=== PATIENT | female | born 1950 | race Caucasian/White ===

== ENCOUNTER 2018-11-27 14:24 | Observation (INO) | payer MEDICARE ==
[~2018-11-27] VITALS: Ht 170.2 cm; Wt 89.9 kg
--- OUTSIDE RECORDS SUMMARY | 2018-11-27 14:28 | XMS REPORT | Continuity of Care Document ---
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 creatinine concentrations, including patients and those with serious co-morbid conditions. Patients with extremes in muscle mass or diet. The data above are obtained from the National Kidney Disease Education Program (NKDEP) which additionally recommends that when the eGFR is used in patients with extremes of body mass index for purposes of drug dosing, the eGFR should be multiplied by the estimated BMI. [facility] CHEM PANEL Calcium Lvl 7.9 mg/dL 8.5 - 10.5 04/18/2018 [facility] CHEM PANEL CO2 27 meq/L 24 - 32 04/18/2018 [facility] CHEM PANEL Glucose Lvl 81 mg/dL 70 - 99 04/18/2018 [facility] CHEM PANEL BUN 11 mg/dL 7 - 22 04/18/2018 [facility] CHEM PANEL Sodium Lvl 132 meq/L 135 - 145 04/18/2018 [facility] CHEM PANEL Creatinine Lvl 0.56 mg/dL 0.50 - 1.40 04/18/2018 [facility] CHEM PANEL Chloride Lvl 97 meq/L 95 - 109 04/18/2018 [facility] CHEM PANEL Potassium Lvl 4.4 meq/L 3.5 - 5.1 04/18/2018 [facility] CHEM PANEL AGAP 12.4 meq/L 10.0 - 20.0 04/18/2018 [facility] ENDOCRINOLOGY Cortisol 11.9 ug/dl 04/18/2018 [facility] HEMATOLOGY MPV 7.7 fL 7.4 - 10.4 04/18/2018 [facility] Platelet 255 K/CMM 133 - 450 04/18/2018 [facility] MCHC 33.9 g/dL 32.0 - 36.0 04/18/2018 [facility] RDW 16.5 % 11.5 - 14.5 04/18/2018 [facility] MCH 28.9 pg 27.0 - 31.0 04/18/2018 [facility] Hgb 10.6 g/dL 12.0 - 16.0 04/18/2018 [facility] RBC 3.69 M/CMM 4.20 - 5.40 04/18/2018 [facility] HEMATOLOGY MCV 85.2 fL 80.0 - 98.0 04/18/2018 [facility] Hct 31.4 % 36.0 - 48.0 04/18/2018 [facility] WBC 10.5 K/CMM 3.7 - 10.4 04/18/2018 [facility] IMMUNOLOGY HIV Ag/Ab 4th Gen Negative *NA* (04/16/18 11:26 AM) Negative 04/16/2018 [facility] URINE CHEM U Osmolality 281 mOsm/kg 300 - 800 04/16/2018 [facility] URINE AND STOOL UA Bacteria Occasional /HPF None Seen /HPF 04/15/2018 [facility] URINE AND STOOL UA WBC 1 /HPF 0 - 5 04/15/2018 [facility] URINE AND STOOL UA RBC null 0 - 2 04/15/2018 [facility] URINE AND STOOL UA Color Ltyellow 04/15/2018 [facility] URINE AND STOOL UA Urobilinogen <=1.0 mg/dL 0.1 - 1.0 04/15/2018 [facility] URINE AND STOOL UA Protein Negative mg/dL Negative mg/dL 04/15/2018 [facility] URINE AND STOOL UA pH 6.0 5.0 - 8.0 04/15/2018 [facility] URINE AND STOOL UA Ketones 20 mg/dL Negative mg/dL 04/15/2018 [facility] URINE AND STOOL UA Glucose Negative mg/dL Negative mg/dL 04/15/2018 [facility] URINE AND STOOL UA Blood Small *ABN* (04/15/18 1:43 PM) Negative 04/15/2018 [facility] URINE AND STOOL UA Bili Negative *NA* (04/15/18 1:43 PM) Negative 04/15/2018 [facility] URINE AND STOOL UA Sq Epi Occasional /LPF Few /LPF 04/15/2018 [facility] URINE AND STOOL UA Leuk Est Negative (04/15/18 1:43 PM) Negative 04/15/2018 [facility] URINE AND STOOL UA Nitrite Negative (04/15/18 1:43 PM) Negative 04/15/2018 [facility] URINE AND STOOL UA Turbidity Clear (04/15/18 1:43 PM) Clear 04/15/2018 [facility] URINE AND STOOL UA Spec Grav 1.003 <=1.030 04/15/2018 [facility] URINE CHEM U Chloride null 04/15/2018 [facility] URINE CHEM U Sodium 11 meq/L 04/15/2018 [facility] URINE CHEM U Potassium 6.6 meq/L 04/15/2018 [facility] URINE CHEM U Osmolality 89 mOsm/kg 300 - 800 04/15/2018 [facility] CARDIAC ENZYMES BNP 56 pg/mL <=100 pg/mL 04/15/2018 [facility] CARDIAC ENZYMES Troponin-I null 0.00 - 0.40 04/15/2018 [facility] CARDIAC ENZYMES Total CK 419 unit/L 12 - 191 04/15/2018 [facility] CHEM PANEL Lipase Lvl 60 unit/L 73 - 393 04/15/2018 [facility] CHEM PANEL Phosphorus 2.3 mg/dL 2.5 - 4.5 04/15/2018 [facility] CHEM PANEL Magnesium Lvl 1.5 mg/dL 1.8 - 2.4 04/15/2018 [facility] CHEM PANEL Bili Total 0.3 mg/dL 0.2 - 1.3 04/15/2018 [facility] CHEM PANEL AST 30 unit/L 0 - 37 04/15/2018 [facility] CHEM PANEL A/G Ratio 0.8 0.7 - 1.6 04/15/2018 [facility] CHEM PANEL Alk Phos 90 unit/L 39 - 136 04/15/2018 [facility] CHEM PANEL ALT 24 unit/L 0 - 65 04/15/2018 [facility] CHEM PANEL Globulin 4.0 g/dL 2.7 - 4.2 04/15/2018 [facility] CHEM PANEL Albumin Lvl 3.1 g/dL 3.5 - 5.0 04/15/2018 [facility] CHEM PANEL Total Protein 7.1 g/dL 6.4 - 8.4 04/15/2018 [facility] CHEM PANEL B/C Ratio 18 6 - 25 04/15/2018 [facility] CHEM PANEL Osmolality 230 mOsm/kg 280 - 300 04/15/2018 [facility] HEMATOLOGY Monocytes # 1.3 K/CMM 0.0 - 0.8 04/15/2018 [facility] HEMATOLOGY Eosinophils # 0.1 K/CMM 0.0 - 0.5 04/15/2018 [facility] HEMATOLOGY Lymphocytes # 0.7 K/CMM 1.0 - 5.5 04/15/2018 [facility] HEMATOLOGY Lymphocytes 7.7 % 20.0 - 40.0 04/15/2018 [facility] HEMATOLOGY Segs 76.6 % 45.0 - 75.0 04/15/2018 [facility] HEMATOLOGY Monocytes 14.0 % 2.0 - 12.0 04/15/2018 [facility] HEMATOLOGY Basophils 0.4 % 0.0 - 1.0 04/15/2018 [facility] HEMATOLOGY Neutrophils # 7.2 K/CMM 1.5 - 8.1 04/15/2018 [facility] HEMATOLOGY Eosinophils 1.3 % 0.0 - 4.0 04/15/2018 [facility] HEMATOLOGY PTT 35.5 s 22.9 - 35.8 04/15/2018 [facility] HEMATOLOGY PT 13.4 s 12.0 - 14.7 04/15/2018 [facility] INR 1.02 0.85 - 1.17 04/15/2018 [facility] Hct 33.3 % 36.0 - 48.0 04/15/2018 [facility] MCV 83.0 fL 80.0 - 98.0 04/15/2018 [facility] MCHC 35.3 g/dL 32.0 - 36.0 04/15/2018 [facility] MCH 29.3 pg 27.0 - 31.0 04/15/2018 [facility] RDW 15.6 % 11.5 - 14.5 04/15/2018 [facility] Platelet 219 K/CMM 133 - 450 04/15/2018 [facility] MPV 7.7 fL 7.4 - 10.4 04/15/2018 [facility] Hgb 11.8 g/dL 12.0 - 16.0 04/15/2018 [facility] RBC 4.01 M/CMM 4.20 - 5.40 04/15/2018 [facility] WBC 9.4 K/CMM 3.7 - 10.4 04/15/2018 [facility] Chest 1view DX Chest 1view DX Clinical Indication: - fatigue. Comparison: 03/18/2018. FINDINGS: AP 1 view chest radiograph was performed. LUNGS: Small lung volumes with mild accentuation of the pulmonary vascularity. No interstitial or airspace opacities. No pleural effusions or pneumothorax. HEART AND MEDIASTINUM: The heart and mediastinum are mildly accentuated by the decreased lung volumes. The trachea is midline. OSSEOUS STRUCTURES: Stable in appearance. IMPRESSION: 1. Small lung volumes with mild accentuation of the pulmonary vascularity. No confluent infiltrates in the lungs. SL: [id number] 04/15/2018 - - Read by: Juana Hopson DO Dictated Date/time: 04/15/18 13:03 Electronically Signed by: Juana Hopson DO 04/15/18 13:03 FINAL REPORT [facility] ELECTROLYTES CO2 29 meq/L 24 - 32 03/21/2018 [facility] ELECTROLYTES Calcium Lvl 8.9 mg/dL 8.5 - 10.5 03/21/2018 [facility] ELECTROLYTES eGFR 94 mL/min/1.73m2 03/21/2018 Result Comment: The eGFR is calculated using the CKD-EPI formula. In most young, healthy individuals the eGFR will be >90 mL/min/1.73m2. The eGFR declines with age. An eGFR of 60-89 may be normal in some populations, particularly the elderly, for whom the CKD-EPI formula has not been extensively validated. Use of the eGFR is not recommended in the following populations: Individuals with unstable creatinine concentrations, including patients and those with serious co-morbid conditions. Patients with extremes in muscle mass or diet. The data above are obtained from the National Kidney Disease Education Program (NKDEP) which additionally recommends that when the eGFR is used in patients with extremes of body mass index for purposes of drug dosing, the eGFR should be multiplied by the estimated BMI. [facility] ELECTROLYTES AGAP 10.3 meq/L 10.0 - 20.0 03/21/2018 [facility] ELECTROLYTES BUN 15 mg/dL 7 - 22 03/21/2018 [facility] ELECTROLYTES Creatinine Lvl 0.59 mg/dL 0.50 - 1.40 03/21/2018 [facility] ELECTROLYTES Glucose Lvl 94 mg/dL 70 - 99 03/21/2018 [facility] ELECTROLYTES Potassium Lvl 4.3 meq/L 3.5 - 5.1 03/21/2018 [facility] ELECTROLYTES Sodium Lvl 130 meq/L 135 - 145 03/21/2018 [facility] ELECTROLYTES Chloride Lvl 95 meq/L 95 - 109 03/21/2018 [facility] ELECTROLYTES Sodium Lvl 129 meq/L 135 - 145 03/20/2018 [facility] CHEM PANEL eGFR 83 mL/min/1.73m2 03/19/2018 Result Comment: The eGFR is calculated using the CKD-EPI formula. In most young, healthy individuals the eGFR will be >90 mL/min/1.73m2. The eGFR declines with age. An eGFR of 60-89 may be normal in some populations, particularly the elderly, for whom the CKD-EPI formula has not been extensively validated. Use of the eGFR is not recommended in the following populations: Individuals with unstable creatinine concentrations, including patients and those with serious co-morbid conditions. Patients with extremes in muscle mass or diet. The data above are obtained from the National Kidney Disease Education Program (NKDEP) which additionally recommends that when the eGFR is used in patients with extremes of body mass index for purposes of drug dosing, the eGFR should be multiplied by the estimated BMI. [facility] CHEM PANEL Sodium Lvl 130 meq/L 135 - 145 03/19/2018 [facility] CHEM PANEL Potassium Lvl 4.6 meq/L 3.5 - 5.1 03/19/2018 [facility] CHEM PANEL CO2 30 meq/L 24 - 32 03/19/2018 [facility] CHEM PANEL Chloride Lvl 92 meq/L 95 - 109 03/19/2018 [facility] CHEM PANEL Calcium Lvl 9.7 mg/dL 8.5 - 10.5 03/19/2018 [facility] CHEM PANEL BUN 14 mg/dL 7 - 22 03/19/2018 [facility] CHEM PANEL Glucose Lvl 113 mg/dL 70 - 99 03/19/2018 [facility] CHEM PANEL Creatinine Lvl 0.74 mg/dL 0.50 - 1.40 03/19/2018 [facility] CHEM PANEL AGAP 12.6 meq/L 10.0 - 20.0 03/19/2018 [facility] HEMATOLOGY MPV 8.1 fL 7.4 - 10.4 03/19/2018 [facility] HEMATOLOGY RBC 4.33 M/CMM 4.20 - 5.40 03/19/2018 [facility] HEMATOLOGY WBC 8.9 K/CMM 3.7 - 10.4 03/19/2018 [facility] HEMATOLOGY Hgb 12.2 g/dL 12.0 - 16.0 03/19/2018 [facility] HEMATOLOGY MCV 83.7 fL 80.0 - 98.0 03/19/2018 [facility] HEMATOLOGY Hct 36.2 % 36.0 - 48.0 03/19/2018 [facility] HEMATOLOGY RDW 15.0 % 11.5 - 14.5 03/19/2018 [facility] HEMATOLOGY MCHC 33.8 g/dL 32.0 - 36.0 03/19/2018 [facility] HEMATOLOGY MCH 28.3 pg 27.0 - 31.0 03/19/2018 [facility] HEMATOLOGY Platelet 335 K/CMM 133 - 450 03/19/2018 [facility] HEMATOLOGY Segs 56.7 % 45.0 - 75.0 03/19/2018 [facility] HEMATOLOGY Eosinophils 2.0 % 0.0 - 4.0 03/19/2018 [facility] HEMATOLOGY Monocytes 11.7 % 2.0 - 12.0 03/19/2018 [facility] HEMATOLOGY Lymphocytes 29.1 % 20.0 - 40.0 03/19/2018 [facility] HEMATOLOGY Basophils 0.5 % 0.0 - 1.0 03/19/2018 [facility] HEMATOLOGY Lymphocytes # 2.6 K/CMM 1.0 - 5.5 03/19/2018 [facility] HEMATOLOGY Neutrophils # 5.1 K/CMM 1.5 - 8.1 03/19/2018 [facility] HEMATOLOGY Monocytes # 1.0 K/CMM 0.0 - 0.8 03/19/2018 [facility] HEMATOLOGY Eosinophils # 0.2 K/CMM 0.0 - 0.5 03/19/2018 [facility] TOXICOLOGY Valproic Acid Lvl 29 ug/ml 50 - 100 03/19/2018 [facility] Chest 1view DX Chest 1view DX PROCEDURE: Chest Radiograph. Clinical Indication: Shortness of breath. Comparison: Chest radiograph 03/07/2011. FINDINGS: The chest shows normal lung volumes without interstitial or airspace opacities, pleural effusions or pneumothorax. The cardiac silhouette is upper limits of normal in size. Degenerative change and scoliotic curvature involves the thoracolumbar spine. IMPRESSION: 1. No chest radiographic evidence of acute cardiopulmonary disease. SL:[id number] 03/18/2018 - - Read by: Salomón Saul MD Dictated Date/time: 03/18/18 20:26 Electronically Signed by: Salomón Saul MD 03/18/18 20:27 FINAL REPORT [facility] CHEM PANEL Osmolality 261 mOsm/kg 280 - 300 03/18/2018 [facility] CHEM PANEL Magnesium Lvl 1.7 mg/dL 1.8 - 2.4 03/18/2018 [facility] CHEM PANEL eGFR 78 mL/min/1.73m2 03/18/2018 Result Comment: The eGFR is calculated using the CKD-EPI formula. In most young, healthy individuals the eGFR will be >90 mL/min/1.73m2. The eGFR declines with age. An eGFR of 60-89 may be normal in some populations, particularly the elderly, for whom the CKD-EPI formula has not been extensively validated. Use of the eGFR is not recommended in the following populations: Individuals with unstable creatinine concentrations, including patients and those with serious co-morbid conditions. Patients with extremes in muscle mass or diet. The data above are obtained from the National Kidney Disease Education Program (NKDEP) which additionally recommends that when the eGFR is used in patients with extremes of body mass index for purposes of drug dosing, the eGFR should be multiplied by the estimated BMI. [facility] CHEM PANEL AGAP 13.2 meq/L 10.0 - 20.0 03/18/2018 [facility] CHEM PANEL Calcium Lvl 8.7 mg/dL 8.5 - 10.5 03/18/2018 [facility] CHEM PANEL Glucose Lvl 96 mg/dL 70 - 99 03/18/2018 [facility] CHEM PANEL CO2 28 meq/L 24 - 32 03/18/2018 [facility] CHEM PANEL Chloride Lvl 85 meq/L 95 - 109 03/18/2018 [facility] CHEM PANEL Potassium Lvl 4.2 meq/L 3.5 - 5.1 03/18/2018 [facility] CHEM PANEL Creatinine Lvl 0.78 mg/dL 0.50 - 1.40 03/18/2018 [facility] CHEM PANEL BUN 13 mg/dL 7 - 22 03/18/2018 [facility] HEMATOLOGY Basophils # 0.1 K/CMM 0.0 - 0.2 03/18/2018 [facility] HEMATOLOGY Eosinophils # 0.2 K/CMM 0.0 - 0.5 03/18/2018 [facility] HEMATOLOGY Monocytes # 1.0 K/CMM 0.0 - 0.8 03/18/2018 [facility] HEMATOLOGY Lymphocytes # 1.9 K/CMM 1.0 - 5.5 03/18/2018 [facility] HEMATOLOGY Segs 59.5 % 45.0 - 75.0 03/18/2018 [facility] HEMATOLOGY Monocytes 12.3 % 2.0 - 12.0 03/18/2018 [facility] HEMATOLOGY Lymphocytes 24.5 % 20.0 - 40.0 03/18/2018 [facility] HEMATOLOGY Neutrophils # 4.7 K/CMM 1.5 - 8.1 03/18/2018 [facility] HEMATOLOGY Basophils 1.1 % 0.0 - 1.0 03/18/2018 [facility] HEMATOLOGY Eosinophils 2.6 % 0.0 - 4.0 03/18/2018 [facility] HEMATOLOGY MPV 7.6 fL 7.4 - 10.4 03/18/2018 [facility] HEMATOLOGY Platelet 292 K/CMM 133 - 450 03/18/2018 [facility] HEMATOLOGY RDW 15.1 % 11.5 - 14.5 03/18/2018 [facility] HEMATOLOGY Hct 33.6 % 36.0 - 48.0 03/18/2018 [facility] HEMATOLOGY MCHC 34.5 g/dL 32.0 - 36.0 03/18/2018 [facility] HEMATOLOGY MCH 28.9 pg 27.0 - 31.0 03/18/2018 [facility] HEMATOLOGY MCV 83.6 fL 80.0 - 98.0 03/18/2018 [facility] HEMATOLOGY Hgb 11.6 g/dL 12.0 - 16.0 03/18/2018 [facility] HEMATOLOGY RBC 4.02 M/CMM 4.20 - 5.40 03/18/2018 [facility] HEMATOLOGY WBC 7.9 K/CMM 3.7 - 10.4 03/18/2018 [facility] LIPIDS VLDL 33 03/18/2018 [facility] LIPIDS LDL (Calculated) 101 mg/dL <=99 mg/dL 03/18/2018 [facility] LIPIDS Chol 178 mg/dL <=199 mg/dL 03/18/2018 [facility] LIPIDS CHD Risk 4.05 3.90 - 5.80 03/18/2018 [facility] LIPIDS HDL 44 mg/dL >=61 mg/dL 03/18/2018 [facility] LIPIDS Trig 166 mg/dL <=149 mg/dL 03/18/2018 [facility] URINE AND STOOL UA Urobilinogen <=1.0 mg/dL 0.1 - 1.0 03/18/2018 [facility] URINE AND STOOL UA WBC 1 /HPF 0 - 5 03/18/2018 [facility] URINE AND STOOL UA Sq Epi Occasional /LPF Few /LPF 03/18/2018 [facility] URINE AND STOOL UA Leuk Est Negative (03/17/18 7:58 PM) Negative 03/18/2018 [facility] URINE AND STOOL UA Spec Grav 1.005 <=1.030 03/18/2018 [facility] URINE AND STOOL UA Protein Negative mg/dL Negative mg/dL 03/18/2018 [facility] URINE AND STOOL UA pH 6.0 5.0 - 8.0 03/18/2018 [facility] URINE AND STOOL UA Bili Negative *NA* (03/17/18 7:58 PM) Negative 03/18/2018 [facility] URINE AND STOOL UA Nitrite Negative (03/17/18 7:58 PM) Negative 03/18/2018 [facility] URINE AND STOOL UA Blood Negative (03/17/18 7:58 PM) Negative 03/18/2018 [facility] URINE AND STOOL UA Ketones Negative mg/dL Negative mg/dL 03/18/2018 [facility] URINE AND STOOL UA Glucose Negative mg/dL Negative mg/dL 03/18/2018 [facility] URINE AND STOOL UA Turbidity Clear (03/17/18 7:58 PM) Clear 03/18/2018 [facility] URINE AND STOOL UA Color Light Yellow *NA* (03/17/18 7:58 PM) Yellow 03/18/2018 [facility] URINE CHEM U Osmolality 215 mOsm/kg 300 - 800 03/18/2018 [facility] URINE CHEM U Potassium 15.1 meq/L 03/18/2018 [facility] URINE CHEM U Chloride 46 meq/L 03/18/2018 [facility] URINE CHEM U Sodium 43 meq/L 03/18/2018 [facility] CARDIAC ENZYMES Troponin-I null 0.00 - 0.40 03/17/2018 [facility] CHEM PANEL A/G Ratio 0.8 0.7 - 1.6 03/17/2018 [facility] CHEM PANEL Globulin 4.2 g/dL 2.7 - 4.2 03/17/2018 [facility] CHEM PANEL B/C Ratio 16 6 - 25 03/17/2018 [facility] CHEM PANEL Albumin Lvl 3.3 g/dL 3.5 - 5.0 03/17/2018 [facility] CHEM PANEL Total Protein 7.5 g/dL 6.4 - 8.4 03/17/2018 [facility] CHEM PANEL ALT 17 unit/L 0 - 65 03/17/2018 [facility] CHEM PANEL AST 9 unit/L 0 - 37 03/17/2018 [facility] CHEM PANEL Alk Phos 111 unit/L 39 - 136 03/17/2018 [facility] CHEM PANEL Bili Total 0.3 mg/dL 0.2 - 1.3 03/17/2018 [facility] HEMATOLOGY Basophils 0.7 % 0.0 - 1.0 03/17/2018 [facility] HEMATOLOGY Neutrophils # 5.4 K/CMM 1.5 - 8.1 03/17/2018 [facility] HEMATOLOGY Monocytes # 0.9 K/CMM 0.0 - 0.8 03/17/2018 [facility] HEMATOLOGY Eosinophils 2.3 % 0.0 - 4.0 03/17/2018 [facility] HEMATOLOGY Segs 61.2 % 45.0 - 75.0 03/17/2018 [facility] HEMATOLOGY Lymphocytes 25.8 % 20.0 - 40.0 03/17/2018 [facility] HEMATOLOGY Monocytes 10.0 % 2.0 - 12.0 03/17/2018 [facility] HEMATOLOGY Eosinophils # 0.2 K/CMM 0.0 - 0.5 03/17/2018 [facility] HEMATOLOGY Basophils # 0.1 K/CMM 0.0 - 0.2 03/17/2018 [facility] HEMATOLOGY Lymphocytes # 2.3 K/CMM 1.0 - 5.5 03/17/2018 [facility] HEMATOLOGY Platelet 304 K/CMM 133 - 450 03/17/2018 [facility] HEMATOLOGY RDW 14.8 % 11.5 - 14.5 03/17/2018 [facility] HEMATOLOGY MPV 7.7 fL 7.4 - 10.4 03/17/2018 [facility] HEMATOLOGY MCH 28.5 pg 27.0 - 31.0 03/17/2018 [facility] HEMATOLOGY MCHC 34.5 g/dL 32.0 - 36.0 03/17/2018 [facility] HEMATOLOGY RBC 4.37 M/CMM 4.20 - 5.40 03/17/2018 [facility] HEMATOLOGY WBC 8.8 K/CMM 3.7 - 10.4 03/17/2018 [facility] HEMATOLOGY MCV 82.6 fL 80.0 - 98.0 03/17/2018 [facility] HEMATOLOGY Hct 36.1 % 36.0 - 48.0 03/17/2018 [facility] HEMATOLOGY Hgb 12.5 g/dL 12.0 - 16.0 03/17/2018 [facility] CHEM PANEL Total Protein 7.5 g/dL 6.4 - 8.4 03/16/2014 [facility] CHEM PANEL Albumin Lvl 3.3 g/dL 3.5 - 5.0 03/16/2014 [facility] CHEM PANEL ALT 25 unit/L 0 - 65 03/16/2014 [facility] CHEM PANEL AST 15 unit/L 0 - 37 03/16/2014 [facility] CHEM PANEL Alk Phos 156 unit/L 39 - 136 03/16/2014 [facility] CHEM PANEL Globulin 4.2 g/dL 2.0 - 4.0 03/16/2014 [facility] CHEM PANEL A/G Ratio 0.8 0.7 - 1.6 03/16/2014 [facility] CHEM PANEL Bili Total 0.2 mg/dL 0.2 - 1.3 03/16/2014 [facility] CHEM PANEL eGFR 78 mL/min/1.73m2 03/16/2014 1Result Comment: The eGFR is calculated using the CKD-EPI formula. In most young, healthy individuals the eGFR will be >90 mL/min/1.73m2. The eGFR declines with age. An eGFR of 60-89 may be normal in some populations, particularly the elderly, for whom the CKD-EPI formula has not been extensively validated. Use of the eGFR is not recommended in the following populations: Individuals with unstable creatinine concentrations, including patients and those with serious co-morbid conditions. Patients with extremes in muscle mass or diet. The data above are obtained from the National Kidney Disease Education Program (NKDEP) which additionally recommends that when the eGFR is used in patients with extremes of body mass index for purposes of drug dosing, the eGFR should be multiplied by the estimated BMI. [facility] CHEM PANEL Chloride Lvl 104 meq/L 95 - 109 03/16/2014 [facility] CHEM PANEL Potassium Lvl 4.3 meq/L 3.5 - 5.1 03/16/2014 [facility] CHEM PANEL Sodium Lvl 142 meq/L 135 - 145 03/16/2014 [facility] CHEM PANEL Creatinine Lvl 0.8 mg/dL 0.5 - 1.4 03/16/2014 [facility] CHEM PANEL B/C Ratio 31 6 - 25 03/16/2014 [facility] CHEM PANEL AGAP 13.3 meq/L 10.0 - 20.0 03/16/2014 [facility] CHEM PANEL Calcium Lvl 9.5 mg/dL 8.5 - 10.5 03/16/2014 [facility] CHEM PANEL CO2 29 meq/L 24 - 32 03/16/2014 [facility] CHEM PANEL BUN 25 mg/dL 7 - 22 03/16/2014 [facility] CHEM PANEL Glucose Lvl 118 mg/dL 70 - 99 03/16/2014 2Interpretive Data: Adult reference range values reflect the clinical guidelines of the [place] [employer]. [facility] HEMATOLOGY Hgb 12.2 g/dL 12.0 - 16.0 03/16/2014 [facility] HEMATOLOGY RBC 4.27 M/CMM 4.20 - 5.40 03/16/2014 [facility] HEMATOLOGY WBC 7.4 K/CMM 3.7 - 10.4 03/16/2014 [facility] HEMATOLOGY MCH 28.5 pg 27.0 - 31.0 03/16/2014 [facility] HEMATOLOGY MCHC 33.6 g/dL 32.0 - 36.0 03/16/2014 [facility] HEMATOLOGY Hct 36.3 % 36.0 - 48.0 03/16/2014 [facility] HEMATOLOGY MCV 84.8 fL 80.0 - 98.0 03/16/2014 [facility] HEMATOLOGY RDW 13.9 % 11.5 - 14.5 03/16/2014 [facility] HEMATOLOGY Platelet 292 K/CMM 133 - 450 03/16/2014 [facility] HEMATOLOGY MPV 9.0 fL 7.4 - 10.4 03/16/2014 [facility] HEMATOLOGY Lymphocytes 29.3 % 20.0 - 40.0 03/16/2014 [facility] HEMATOLOGY Segs 52.8 % 45.0 - 75.0 03/16/2014 [facility] HEMATOLOGY Eosinophils 2.6 % 0.0 - 4.0 03/16/2014 [facility] HEMATOLOGY Monocytes 14.9 % 2.0 - 12.0 03/16/2014 [facility] HEMATOLOGY Segs-Bands # 3.9 K/CMM 1.5 - 8.1 03/16/2014 [facility] HEMATOLOGY Basophils 0.4 % 0.0 - 1.0 03/16/2014 [facility] HEMATOLOGY Lymphocytes # 2.2 K/CMM 1.0 - 5.5 03/16/2014 [facility] HEMATOLOGY Eosinophils # 0.2 K/CMM 0.0 - 0.5 03/16/2014 [facility] HEMATOLOGY Monocytes # 1.1 K/CMM 0.0 - 0.8 03/16/2014 [facility] HEMATOLOGY Basophils # 0.0 K/CMM 0.0 - 0.2 03/16/2014 [facility] IMMUNOLOGY HIV. Negative *NA* (03/16/14 5:56 AM) Negative 03/16/2014 [facility] IMMUNOLOGY CDC HIV 4th GEN Negative (03/16/14 5:56 AM) Negative 03/16/2014 [facility] DRUG SCREEN U Phencyc Scr Negative *NA* (03/16/14 4:24 AM) Negative 03/16/2014 [facility] DRUG SCREEN U Benzodia Scr Negative *NA* (03/16/14 4:24 AM) Negative 03/16/2014 [facility] DRUG SCREEN U Opiate Scr Negative *NA* (03/16/14 4:24 AM) Negative 03/16/2014 [facility] DRUG SCREEN U Cocaine Scr Negative *NA* (03/16/14 4:24 AM) Negative 03/16/2014 [facility] DRUG SCREEN U Cannab Scr Negative *NA* (03/16/14 4:24 AM) Negative 03/16/2014 [facility] DRUG SCREEN UDS Note See Note 3 *NA* (03/16/14 4:24 AM) 03/16/2014 3Interpretive Data: Drugs reported as positive have not been confirmed by a second method and should be used for medical purposes only. To order confirmation, contact laboratory. note: Below are cut-off concentrations for all urine drugs of abuse performed in the laboratory. Some drugs listed in the table may not be included in this panel. Description Cut-off concentration Amphetamine 1000 ng/mL Barbiturates 200 ng/mL Benzodiazepines 300 ng/mL Cocaine metabolites 300 ng/mL Opiates 300 ng/mL Phencyclidine 25 ng/mL Propoxyphene 300 ng/mL Marijuana metabolites 50 ng/mL Methadone 300 ng/mL Urine alcohol 20 mg/dL [facility] DRUG SCREEN U Amph Scr Negative *NA* (03/16/14 4:24 AM) Negative 03/16/2014 [facility] DRUG SCREEN U Gracy Scr Negative *NA* (03/16/14 4:24 AM) Negative 03/16/2014 [facility] URINE AND STOOL UA Sq Epi Rare /LPF Few /LPF 03/16/2014 [facility] URINE AND STOOL UA WBC 0-2 /HPF None Seen /HPF 03/16/2014 [facility] URINE AND STOOL Micro? Performed (03/16/14 4:24 AM) 03/16/2014 [facility] URINE AND STOOL UA RBC 0-2 /HPF 0 - 2 03/16/2014 [facility] URINE AND STOOL UA Bacteria Few /HPF None Seen /HPF 03/16/2014 [facility] URINE AND STOOL UA Color Yellow *NA* (03/16/14 4:24 AM) Yellow 03/16/2014 [facility] URINE AND STOOL UA pH 6.0 5.0 - 8.0 03/16/2014 [facility] URINE AND STOOL UA Spec Grav 1.015 <=1.030 03/16/2014 [facility] URINE AND STOOL UA Protein Negative (03/16/14 4:24 AM) Negative 03/16/2014 [facility] URINE AND STOOL UA Turbidity Clear (03/16/14 4:24 AM) Clear 03/16/2014 [facility] URINE AND STOOL UA Glucose Negative (03/16/14 4:24 AM) Negative 03/16/2014 [facility] URINE AND STOOL UA Bili Negative *NA* (03/16/14 4:24 AM) Negative 03/16/2014 [facility] URINE AND STOOL UA Blood Trace *ABN* (03/16/14 4:24 AM) Negative 03/16/2014 [facility] URINE AND STOOL UA Urobilinogen 0.2 EU/dL 0.1 - 1.0 03/16/2014 [facility] URINE AND STOOL UA Nitrite Negative (03/16/14 4:24 AM) Negative 03/16/2014 [facility] URINE AND STOOL UA Ketones Negative *NA* (03/16/14 4:24 AM) Negative 03/16/2014 [facility] URINE AND STOOL UA Leuk Est Trace *ABN* (03/16/14 4:24 AM) Negative 03/16/2014 [facility] URINE CHEM U Preg Negative (03/16/14 4:24 AM) Negative 03/16/2014 [facility] Shoulder series Shoulder series EXAM: RIGHT SHOULDER 3 VIEWS DATE: Mar 16, 2014 04:51:00 AM INDICATION: Pain, Trauma. COMPARISON: None available TECHNIQUE: AP views in internal and external rotation and an axillary view of the right shoulder FINDINGS: No fracture, dislocation or other acute bony abnormality is identified. There mild degenerative changes of the acromioclavicular joint. No soft tissue abnormality is identified. IMPRESSION: 1. No acute bony abnormality identified. 2. Degenerative changes at the acromioclavicular joint. 03/16/2014 - - This report was dictated by a Procurement Inspector/Fellow. I have personally reviewed the images as well as the Resident's interpretation and agree with the findings. Read by: Shanta Bautista MD Resident: Shanta Bautista MD Dictated Date/time: 03/16/14 05:04 Electronically Signed by: Akbar Claudio 03/16/14 06:19 FINAL REPORT [facility] Vital Signs Vital Sign Value Date Comments Source Heart Rate 69 04/20/2018 [facility] Systolic (mm Hg) 119 04/20/2018 [facility] Diastolic (mm Hg) 76 04/20/2018 [facility] Respitory Rate 18 04/20/2018 [facility] Temperature Oral (F) 97.6 F 04/20/2018 [facility] Heart Rate 69 04/20/2018 [facility] Temperature Oral (F) 97.5 F 04/20/2018 [facility] Systolic (mm Hg) 130 04/20/2018 [facility] Diastolic (mm Hg) 83 04/20/2018 [facility] Respitory Rate 18 04/20/2018 [facility] Heart Rate 67 04/20/2018 [facility] Respitory Rate 18 04/20/2018 [facility] Systolic (mm Hg) 136 04/20/2018 [facility] Diastolic (mm Hg) 84 04/20/2018 [facility] Temperature Oral (F) 97.7 F 04/20/2018 [facility] BMI Calculated 32.84 04/15/2018 [facility] Weight 95.1 04/15/2018 [facility] Height 170.18 cm 04/15/2018 [facility] BMI Calculated 32.84 04/15/2018 [facility] Weight 95.1 04/15/2018 [facility] Height 170.18 cm 04/15/2018 [facility] Weight 100 04/15/2018 [facility] BMI Calculated 34.53 04/15/2018 [facility] Height 170.18 cm 04/15/2018 [facility] Respitory Rate 18 03/21/2018 [facility] Temperature Oral (F) 97.9 F 03/21/2018 [facility] Heart Rate 76 03/21/2018 [facility] Systolic (mm Hg) 127 03/21/2018 [facility] Diastolic (mm Hg) 79 03/21/2018 [facility] Systolic (mm Hg) 133 03/20/2018 [facility] Diastolic (mm Hg) 77 03/20/2018 [facility] Heart Rate 74 03/20/2018 [facility] Respitory Rate 17 03/20/2018 [facility] Temperature Oral (F) 98.3 F 03/20/2018 [facility] Temperature Oral (F) 97.8 F 03/20/2018 [facility] Systolic (mm Hg) 117 03/20/2018 [facility] Diastolic (mm Hg) 70 03/20/2018 [facility] Respitory Rate 18 03/20/2018 [facility] Heart Rate 69 03/20/2018 [facility] BMI Calculated 33.27 03/18/2018 [facility] Weight 96.364 03/18/2018 [facility] Height 170.18 cm 03/18/2018 [facility] BMI Calculated 35.97 03/17/2018 [facility] Height 167.64 cm 03/17/2018 [facility] Weight 101.091 03/17/2018 [facility] Respitory Rate 16 03/16/2014 [facility] Diastolic (mm Hg) 92 03/16/2014 [facility] Systolic (mm Hg) 158 03/16/2014 [facility] Temperature Oral (F) 98.1 F 03/16/2014 [facility] Heart Rate 83 03/16/2014 [facility] Heart Rate 81 03/16/2014 [facility] Respitory Rate 16 03/16/2014 [facility] Diastolic (mm Hg) 71 03/16/2014 [facility] Systolic (mm Hg) 126 03/16/2014 [facility] Temperature Oral (F) 98.0 F 03/16/2014 [facility] Temperature Oral (F) 98.7 F 03/16/2014 [facility] Heart Rate 88 03/16/2014 [facility] Systolic (mm Hg) 143 03/16/2014 [facility] Respitory Rate 18 03/16/2014 [facility] Diastolic (mm Hg) 82 03/16/2014 [facility] Height 167.64 cm 03/16/2014 [facility] Weight 64.55 03/16/2014 [facility] BMI Calculated 22.97 03/16/2014 [facility] Encounters Location Location Details Encounter Type Encounter Number Reason For Visit Attending Provider ADM Date DC Date Status Source [facility] [id number] Norma Guillen 03/16/2014 03/17/2014 [facility] Inpatient [id number] William Barbosa 03/18/2018 03/21/2018 [facility] Inpatient [id number] Samson Hardin 04/15/2018 04/20/2018 [facility] Procedures Procedure Code Date Perfomer Comments Source Abdominal hysterectomy [id number] [facility] Excision of ovary<sup>1</sup> [id number] 1bilateral [facility] Tonsillectomy [id number] [facility] Abdominal hysterectomy [id number] [facility] Excision of ovary<sup>1</sup> [id number] bilateral [facility] Tonsillectomy [id number] [facility] Abdominal hysterectomy [id number] [facility] Excision of ovary<sup>1</sup> [id number] bilateral [facility] Tonsillectomy [id number] [facility]
--- OUTSIDE RECORDS SUMMARY | 2018-11-27 14:28 | XMS REPORT ---
Author [facility] Address Unknown Phone Unavailable Care Team Providers Care Dental Service Technician Name Role Phone Unavailable Unavailable Payers Payer Name Policy Type Policy Number Effective Date Expiration Date Problems This patient has no known problems. Allergies, Adverse Reactions, Alerts Allergy Name Allergy Type Status Severity Reaction(s) Onset Date Inactive Date Treating Clinician Comments Sulfa (Sulfonamide Antibiotics) DA Active MO 2018-05-03 00:00:00 penicillin G DA Active SV 2018-05-03 00:00:00 Sulfa (Sulfonamide Antibiotics) DA Active MO 2018-03-08 00:00:00 penicillin G DA Active SV 2018-03-08 00:00:00 Medications This patient has no known medications.
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
--- OUTSIDE RECORDS SUMMARY | 2018-11-27 14:28 | XMS REPORT | Summary of Care ---
Author Author [facility] Organization [facility] Address Unknown Phone Unavailable Encounter ALEISHA Beebe(DONNA) [id number] Date(s): 04/15/18 - 04/20/18 [facility] [address] [place] [address]- [phone] Encounter Diagnosis Hypo-osmolality and hyponatremia (Final) - 04/24/18 Delirium due to known physiological condition (Final) - Acute kidney failure, unspecified (Final) - Morbid (severe) obesity due to excess calories (Final) - Schizoaffective disorder, bipolar type (Final) - Epilepsy, unspecified, not intractable, without status epilepticus (Final) - Other disorders of phosphorus metabolism (Final) - Hypomagnesemia (Final) - Hypokalemia (Final) - Essential (primary) hypertension (Final) - Polydipsia (Final) - Patient's noncompliance with other medical treatment and regimen (Final) - Discharge Disposition: Intermediate Care Attending Physician: Samson Hardin MD Admitting Physician: Samson Hardin MD Vital Signs 1 2 3 Most recent to oldest [Reference Range]: 170.18 cm (04/15/18 5:59 PM) 170.18 cm (04/15/18 3:39 PM) 170.18 cm (04/15/18 11:28 AM) Height 98.727 kg (04/20/18 4:45 AM) 98.409 kg (04/19/18 3:29 AM) 99.727 kg (04/18/18 5:22 AM) Current Weight 97.6 DegF (04/20/18 10:59 AM) 97.5 DegF (04/20/18 7:36 AM) 97.7 DegF (04/20/18 4:30 AM) Temperature Oral [96.4-99.1 DegF] 119/76 mmHg (04/20/18 10:59 AM) 130/83 mmHg (04/20/18 7:36 AM) 136/84 mmHg (04/20/18 4:30 AM) Blood Pressure [90-140/60-90 mmHg] 18 BRMIN (04/20/18 10:59 AM) 18 BRMIN (04/20/18 7:36 AM) 18 BRMIN (04/20/18 4:30 AM) Respiratory Rate [14-20 BRMIN] 69 bpm (04/20/18 10:59 AM) 69 bpm (04/20/18 7:36 AM) 67 bpm (04/20/18 4:30 AM) Peripheral Pulse Rate [60-100 bpm] 95.1 kg (04/15/18 5:59 PM) 95.1 kg (04/15/18 3:39 PM) 100 kg (04/15/18 11:28 AM) Weight 32.84 m2 (04/15/18 5:59 PM) 32.84 m2 (04/15/18 3:39 PM) 34.53 m2 (04/15/18 11:28 AM) Body Mass Index Problem List Condition Effective Dates Status Health Status Informant Simple Active obesity(Confirmed) Allergies, Adverse Reactions, Alerts Substance Reaction Severity Status penicillins Active sulfa drugs Active Medications amLODIPine 2.5 mg, 1 tab, Route: PO, Drug form: TAB, Daily, Dosing Weight 95.1, kg, Start d ate: 04/16/18 9:00:00 CDT, Duration: 30 day, Stop date: 05/15/18 9:00:00 CDT Notes: (Same as: Kian) Start Date: 04/16/18 Stop Date: 04/20/18 Status: Discontinued amLODIPine 2.5 mg oral tablet 2.5 mg=1 tab, PO, Daily, 0 Refill(s) Start Date: 04/15/18 Status: Ordered bacitracin topical 500 units/g ointment 1 appl, TOP, Q12H, 0 Refill(s) Start Date: 04/15/18 Status: Ordered bacitracin topical 500 units/g ointment 1 appl, Route: TOP, Q12H, Drug form: OINT, Start date: 04/15/18 21:00:00 CDT, Du ration: 30 day, Stop date: 05/15/18 9:00:00 CDT Start Date: 04/15/18 Stop Date: 04/16/18 Status: Discontinued benztropine 1 mg, 1 tab, Route: PO, Drug form: TAB, Q12H, Dosing Weight 95.1, kg, Start date : 04/15/18 21:00:00 CDT, Duration: 30 day, Stop date: 05/15/18 9:00:00 CDT Notes: (Same As: Jessica) Start Date: 04/15/18 Stop Date: 04/16/18 Status: Discontinued benztropine 1 mg, 1 tab, Route: PO, Drug form: TAB, Bedtime, Dosing Weight 95.1, kg, Start d ate: 04/17/18 21:00:00 CDT, Duration: 30 day, Stop date: 05/16/18 21:00:00 CDT Notes: (Same As: Jessica) Start Date: 04/17/18 Stop Date: 04/20/18 Status: Discontinued benztropine 1 mg oral tablet 1 mg=1 tab, PO, Q12H, 0 Refill(s) Start Date: 04/15/18 Status: Ordered DDAVP 2 microgram, 0.5 mL, Route: SUB-Q, Drug form: INJ, ONCE, Dosing Weight 95.1, kg, Start date: 04/15/18 21:03:00 CDT, Stop date: 04/15/18 21:03:00 CDT Notes: (Same As: DDAVP) MEDICATION WASTE Product Size: 4 microgram Pro duct Wasted: ___ microgram Start Date: 04/15/18 Stop Date: 04/15/18 Status: Completed Depakote 250 mg oral enteric coated tablet 750 mg, 3 tab, Route: PO, Drug form: ECTAB, QAM, Dosing Weight 95.1, kg, Start d ate: 04/16/18 9:00:00 CDT, Duration: 30 day, Stop date: 05/15/18 9:00:00 CDT Notes: (Same as: Depakote Delayed Release) Do not confuse with the extended-rel ease tablet. Delayed absorption, enteric coated tablet. Do not crush Start Date: 04/16/18 Stop Date: 04/20/18 Status: Discontinued Depakote 250 mg oral enteric coated tablet 1,000 mg, 4 tab, Route: PO, Drug form: ECTAB, Bedtime, Dosing Weight 95.1, kg, S tart date: 04/15/18 21:00:00 CDT, Duration: 30 day, Stop date: 05/14/18 21:00:00 CDT Notes: (Same as: Depakote Delayed Release) Do not confuse with the extended-rel ease tablet. Delayed absorption, enteric coated tablet. Do not crush Start Date: 04/15/18 Stop Date: 04/20/18 Status: Discontinued Depakote 250 mg oral enteric coated tablet 1,000 mg=4 tab, PO, Bedtime, 0 Refill(s) Start Date: 04/15/18 Status: Ordered Depakote 250 mg oral enteric coated tablet 750 mg=3 tab, PO, QAM, 0 Refill(s) Start Date: 04/15/18 Status: Ordered Dextrose 50% Syringe 25 gm, 50 mL, Route: IVP, Drug Form: INJ, Dosing Weight 95.1, kg, PRN, PRN Blood Glucose Results, Start date: 04/16/18 1:45:00 CDT, Duration: 30 day, Stop date: 05/16/18 1:44:00 CDT Start Date: 04/16/18 Stop Date: 04/20/18 Status: Discontinued Dextrose 50% Syringe 12.5 gm, 25 mL, Route: IVP, Drug Form: INJ, Dosing Weight 95.1, kg, PRN, PRN Blo od Glucose Results, Start date: 04/16/18 1:45:00 CDT, Duration: 30 day, Stop pierce e: 05/16/18 1:44:00 CDT Start Date: 04/16/18 Stop Date: 04/20/18 Status: Discontinued Dextrose 50% Syringe 25 mL, Route: IVP, Dosing Weight 95.1, kg, PRN, PRN Blood Glucose Results, Start date: 04/16/18 1:44:00 CDT, Duration: 30 day, Stop date: 05/16/18 1:43:00 CDT Start Date: 04/16/18 Stop Date: 04/16/18 Status: Deleted Dextrose 50% Syringe 50 mL, Route: IVP, Dosing Weight 95.1, kg, PRN, PRN Blood Glucose Results, Start date: 04/16/18 1:44:00 CDT, Duration: 30 day, Stop date: 05/16/18 1:43:00 CDT Start Date: 04/16/18 Stop Date: 04/16/18 Status: Deleted glucagon 1 mg, Route: IM, Drug form: PDR/INJ, PRN, Dosing Weight 95.1, kg, PRN Blood Gluc ose Results, Start date: 04/16/18 1:45:00 CDT, Duration: 30 day, Stop date: 04/21 02/04 1:44:00 CDT Start Date: 04/16/18 Stop Date: 04/20/18 Status: Discontinued glucagon 1 mg, Route: IM, PRN, Dosing Weight 95.1, kg, PRN Blood Glucose Results, Start d ate: 04/16/18 1:44:00 CDT, Duration: 30 day, Stop date: 05/16/18 1:43:00 CDT Start Date: 04/16/18 Stop Date: 04/16/18 Status: Deleted hydrochlorothiazide 25 mg oral tablet 25 mg, 1 tab, Route: PO, Drug form: TAB, Daily, Start date: 04/16/18 9:00:00 CDT , Duration: 30 day, Stop date: 05/15/18 9:00:00 CDT Notes: (Same as: Hydrodiuril) With food. Start Date: 04/16/18 Stop Date: 04/15/18 Status: Canceled hydrochlorothiazide-lisinopril 25 mg-20 mg oral tablet 1 tab, Route: PO, Drug Form: TAB, Dosing Weight 95.1, kg, Daily, Start date: 9:00:00 CDT, Duration: 30 day, Stop date: 05/15/18 9:00:00 CDT Start Date: 04/16/18 Stop Date: 04/15/18 Status: Deleted hydrochlorothiazide-lisinopril 25 mg-20 mg oral tablet 1 tab, PO, Daily, 0 Refill(s) Start Date: 04/15/18 Status: Ordered insulin lispro 3 unit, 0.03 mL, Route: SUB-Q, Drug form: SOLN, TID-Before Meals, Dosing Weight 95.1, kg, PRN Blood Glucose Results, Start date: 04/16/18 1:45:00 CDT, Duration: 30 day, Stop date: 05/16/18 1:44:00 CDT Notes: (Same as: Humalog ) Roll in palms of hands gently; Do not shake `vigorou sly. "Single Patient Use Only " WASTE: F/P - Black; E - [facility] [address] [address] able for 28 days at room temperature.Expires in days from Da te Start Date: 04/16/18 Stop Date: 04/20/18 Status: Discontinued insulin lispro 2 unit, 0.02 mL, Route: SUB-Q, Drug form: SOLN, TID-Before Meals, Dosing Weight 95.1, kg, PRN Blood Glucose Results, Start date: 04/16/18 1:45:00 CDT, Duration: 30 day, Stop date: 05/16/18 1:44:00 CDT Notes: (Same as: Humalog ) Roll in palms of hands gently; Do not shake `vigorou sly. "Single Patient Use Only " WASTE: F/P - Black; E - [facility] [address] able for 28 days at room temperature.Expires in days from Da te Start Date: 04/16/18 Stop Date: 04/20/18 Status: Discontinued insulin lispro 1 unit, 0.01 mL, Route: SUB-Q, Drug form: SOLN, TID-Before Meals, Dosing Weight 95.1, kg, PRN Blood Glucose Results, Start date: 04/16/18 1:45:00 CDT, Duration: 30 day, Stop date: 05/16/18 1:44:00 CDT Notes: (Same as: Humalog ) Roll in palms of hands gently; Do not shake `vigorou sly. "Single Patient Use Only " WASTE: F/P - Black; E - [facility] [address] able for 28 days at room temperature.Expires in days from Da te Start Date: 04/16/18 Stop Date: 04/20/18 Status: Discontinued insulin lispro 5 unit, 0.05 mL, Route: SUB-Q, Drug form: SOLN, TID-Before Meals, Dosing Weight 95.1, kg, PRN Blood Glucose Results, Start date: 04/16/18 1:45:00 CDT, Duration: 30 day, Stop date: 05/16/18 1:44:00 CDT Notes: (Same as: Humalog ) Roll in palms of hands gently; Do not shake `vigorou sly. "Single Patient Use Only " WASTE: F/P - Black; E - [facility] [address] [address] able for 28 days at room temperature.Expires in days from Da te Start Date: 04/16/18 Stop Date: 04/20/18 Status: Discontinued insulin lispro 4 unit, 0.04 mL, Route: SUB-Q, Drug form: SOLN, TID-Before Meals, Dosing Weight 95.1, kg, PRN Blood Glucose Results, Start date: 04/16/18 1:45:00 CDT, Duration: 30 day, Stop date: 05/16/18 1:44:00 CDT Notes: (Same as: Humalog ) Roll in palms of hands gently; Do not shake `vigorou sly. "Single Patient Use Only " WASTE: F/P - Black; E - [facility] [address] able for 28 days at room temperature.Expires in days from Da te Start Date: 04/16/18 Stop Date: 04/20/18 Status: Discontinued insulin lispro 2 unit, 0.02 mL, Route: SUB-Q, Drug form: SOLN, Bedtime, Dosing Weight 95.1, kg, PRN Blood Glucose Results, Start date: 04/16/18 1:44:00 CDT, Duration: 30 day, Stop date: 05/16/18 1:43:00 CDT Notes: (Same as: Humalog ) Roll in palms of hands gently; Do not shake `vigorou sly. "Single Patient Use Only " WASTE: F/P - Black; E - [facility] [address] able for 28 days at room temperature.Expires in days from Da te Start Date: 04/16/18 Stop Date: 04/20/18 Status: Discontinued insulin lispro 4 unit, 0.04 mL, Route: SUB-Q, Drug form: SOLN, Bedtime, Dosing Weight 95.1, kg, PRN Blood Glucose Results, Start date: 04/16/18 1:44:00 CDT, Duration: 30 day, Stop date: 05/16/18 1:43:00 CDT Notes: (Same as: Humalog ) Roll in palms of hands gently; Do not shake `vigorou sly. "Single Patient Use Only " WASTE: F/P - Black; E - [facility] [address] able for 28 days at room temperature.Expires in days from Da te Start Date: 04/16/18 Stop Date: 04/20/18 Status: Discontinued insulin lispro 3 unit, 0.03 mL, Route: SUB-Q, Drug form: SOLN, Bedtime, Dosing Weight 95.1, kg, PRN Blood Glucose Results, Start date: 04/16/18 1:44:00 CDT, Duration: 30 day, Stop date: 05/16/18 1:43:00 CDT Notes: (Same as: Humalog ) Roll in palms of hands gently; Do not shake `vigorou sly. "Single Patient Use Only " WASTE: F/P - Black; E - [facility] [address] able for 28 days at room temperature.Expires in days from Da te Start Date: 04/16/18 Stop Date: 04/20/18 Status: Discontinued insulin lispro 1 unit, 0.01 mL, Route: SUB-Q, Drug form: SOLN, Bedtime, Dosing Weight 95.1, kg, PRN Blood Glucose Results, Start date: 04/16/18 1:44:00 CDT, Duration: 30 day, Stop date: 05/16/18 1:43:00 CDT Notes: (Same as: Humalog ) Roll in palms of hands gently; Do not shake `vigorou slsaman. "Single Patient Use Only " WASTE: F/P - Black; E - [facility] [address] able for 28 days at room temperature.Expires in days from Da te Start Date: 04/16/18 Stop Date: 04/20/18 Status: Discontinued Lasix 20 mg, 2 mL, Route: IVP, Drug form: INJ, ONCE, Dosing Weight 95.1, kg, Start pierce e: 04/16/18 17:59:00 CDT, Stop date: 04/16/18 17:59:00 CDT Notes: (Same as: Lasix) Start Date: 04/16/18 Stop Date: 04/16/18 Status: Completed lisinopril 20 mg, 1 tab, Route: PO, Drug form: TAB, Daily, Start date: 04/16/18 9:00:00 CDT , Duration: 30 day, Stop date: 05/15/18 9:00:00 CDT Notes: (Same as: Prinivil, Zestril) Start Date: 04/16/18 Stop Date: 04/20/18 Status: Discontinued magnesium sulfate 2 gm in Water 50 ml 2 gm, 50 mL, Route: IVPB, Drug form: INJ, ONCE, Dosing Weight 100, kg, Priority: STAT, Start date: 04/15/18 14:47:00 CDT, Stop date: 04/15/18 14:47:00 CDT Notes: WASTE: F/P - Sink; E - [employer] Trash [facility] Start Date: 04/15/18 Stop Date: 04/15/18 Status: Completed MiraLax 17 gm, 1 pkt, Route: PO, Drug form: PWDR, Daily, Dosing Weight 95.1, kg, Start d ate: 04/16/18 9:00:00 CDT, Duration: 30 day, Stop date: 05/15/18 9:00:00 CDT Notes: Dissolve in 8 oz of water or juice.(Same as: Miralax) Start Date: 04/16/18 Stop Date: 04/20/18 Status: Discontinued MiraLax oral powder for reconstitution 17 gm, PO, Daily, 0 Refill(s) Start Date: 04/15/18 Status: Ordered mupirocin topical 1 appl, Route: NASAL, Q12H, Drug form: OINT, Start date: 04/16/18 21:00:00 CDT, Duration: 5 day, Stop date: 04/21/18 9:00:00 CDT, MRSA Decolonization Start Date: 04/16/18 Stop Date: 04/20/18 Status: Discontinued normal saline 0.9% IV 1,000 mL 1,000 mL, Rate: 100 ml/hr, Infuse over: 10 hr, Route: IV, Dosing Weight 95.1 kg, Total Volume: 1,000, Start date: 04/16/18 9:38:00 CDT, Duration: 30 day, Stop d ate: 05/16/18 9:37:00 CDT, 2.15, m2 Start Date: 04/16/18 Stop Date: 04/17/18 Status: Discontinued NS 1,000 mL 1,000 mL, Rate: 75 ml/hr, Infuse over: 13.3 hr, Route: IV, Dosing Weight 95.1 kg , Total Volume: 1,000, Start date: 04/15/18 17:29:00 CDT, Duration: 30 day, Stop date: 05/15/18 17:28:00 CDT, 2.15, m2 Start Date: 04/15/18 Stop Date: 04/15/18 Status: Discontinued NS 1,000 mL 1,000 mL, Rate: 50 ml/hr, Infuse over: 20 hr, Route: IV, Dosing Weight 95.1 kg, Total Volume: 1,000, Start date: 04/16/18 6:06:00 CDT, Duration: 30 day, Stop da te: 05/16/18 6:05:00 CDT, 2.15, m2 Start Date: 04/16/18 Stop Date: 04/16/18 Status: Discontinued nystatin topical 100,000 units/g powder 1 appl, Route: TOP, PRN, Drug form: PWDR, PRN For Fungal Prophylaxis, Start date : 04/16/18 1:45:00 CDT, Duration: 30 day, Stop date: 05/16/18 1:44:00 CDT Notes: (Same as:Mycostatin, Nilstat) For external use only. Start Date: 04/16/18 Stop Date: 04/20/18 Status: Discontinued Phenergan + Sodium Chloride 0.9% IV 50 mL 12.5 mg, 0.5 mL, Route: IVPB, Q4H, Dosing Weight 95.1, kg, PRN Nausea & Vomiting, Start date: 04/15/18 17:27:00 CDT, Duration: 30 day, Stop date: 05/15 17:26:00 CDT Notes: Do not give IV push. (Same as: Phenergan) Start Date: 04/15/18 Stop Date: 04/20/18 Status: Discontinued PHOS-NaK oral powder for reconstitution 1 pkt, Route: PO, Drug Form: PDR/REC, Dosing Weight 95.1, kg, QID, Start date: 0 04/15/18 21:00:00 CDT, Duration: 4 doses or times, Stop date: 04/16/18 17:00:00 C DT Notes: (Same as: Phos-NaK) Each 1.5 gm pkt has 250mg phosphorous. Mix w/2.5oz w ater and stir. Start Date: 04/15/18 Stop Date: 04/16/18 Status: Completed potassium chloride 40 mEq, 30 mL, Route: PO, Drug form: LIQ, ONCE, Dosing Weight 95.1, kg, Start da te: 04/15/18 17:39:00 CDT, Stop date: 04/15/18 17:39:00 CDT Notes: (Same as: Potassium Chloride) Start Date: 04/15/18 Stop Date: 04/15/18 Status: Deleted potassium chloride 20 mEq oral tablet, extended release 40 mEq, 30 mL, Route: PO, Drug form: LIQ, ONCE, Dosing Weight 95.1, kg, Start da te: 04/15/18 17:29:00 CDT, Stop date: 04/15/18 17:29:00 CDT Notes: (Same as: Potassium Chloride) Start Date: 04/15/18 Stop Date: 04/15/18 Status: Completed Risperdal 4 mg, 2 tab, Route: PO, Drug form: TAB, Bedtime, Dosing Weight 95.1, kg, Start d ate: 04/15/18 21:00:00 CDT, Duration: 30 day, Stop date: 05/14/18 21:00:00 CDT Notes: (Same as: Risperdal) Start Date: 04/15/18 Stop Date: 04/16/18 Status: Discontinued Risperdal 2 mg, 1 tab, Route: PO, Drug form: TAB, QAM, Dosing Weight 95.1, kg, Start date: 04/16/18 9:00:00 CDT, Duration: 30 day, Stop date: 05/15/18 9:00:00 CDT Notes: (Same as: Risperdal) Start Date: 04/16/18 Stop Date: 04/20/18 Status: Discontinued Risperdal 2 mg, 1 tab, Route: PO, Drug form: TAB, Bedtime, Dosing Weight 95.1, kg, Start d ate: 04/17/18 21:00:00 CDT, Duration: 30 day, Stop date: 05/16/18 21:00:00 CDT Notes: (Same as: Risperdal) Start Date: 04/17/18 Stop Date: 04/20/18 Status: Discontinued Risperdal 2 mg oral tablet 2 mg=1 tab, PO, QAM, 0 Refill(s) Start Date: 04/15/18 Status: Ordered Risperdal 4 mg oral tablet 4 mg=1 tab, PO, Bedtime, 0 Refill(s) Start Date: 04/15/18 Status: Ordered Saline Flush 0.9% 10 ml, Route: IVP, Drug Form: INJ, Dosing Weight 95.1, kg, PRN, PRN Line Flush, Start date: 04/16/18 1:45:00 CDT, Duration: 30 day, Stop date: 05/16/18 1:44:00 CDT Notes: (Same as: BD Posiflush) Start Date: 04/16/18 Stop Date: 04/20/18 Status: Discontinued Saline Flush 0.9% 10 ml, Route: IVP, Drug Form: INJ, Dosing Weight 95.1, kg, Q12H, Start date: 9:00:00 CDT, Duration: 30 day, Stop date: 05/15/18 21:00:00 CDT Notes: (Same as: BD Posiflush) Start Date: 04/16/18 Stop Date: 04/20/18 Status: Discontinued Sodium Chloride 0.9% IV 1,000 mL 1,000 mL, Rate: 75 ml/hr, Infuse over: 13.3 hr, Route: IV, Dosing Weight 100 kg, Total Volume: 1,000, Priority: STAT, Start date: 04/15/18 13:19:00 CDT, Duratio n: 1 doses or times, Stop date: 04/16/18 2:36:00 CDT, 2.2, m2 Start Date: 04/15/18 Stop Date: 04/15/18 Status: Completed sodium chloride 1 gm oral tablet 2 gm, 2 tab, Route: PO, Drug form: TAB, ONCE, Dosing Weight 95.1, kg, Start date : 04/16/18 17:03:00 CDT, Stop date: 04/16/18 17:03:00 CDT Start Date: 04/16/18 Stop Date: 04/16/18 Status: Completed sodium chloride 1 gm oral tablet 2 gm, 2 tab, Route: PO, Drug form: TAB, ONCE, Dosing Weight 95.1, kg, Start date : 04/17/18 10:48:00 CDT, Stop date: 04/17/18 10:48:00 CDT Start Date: 04/17/18 Stop Date: 04/17/18 Status: Completed Tylenol 650 mg, 2 tab, Route: PO, Drug form: TAB, Q6H, Dosing Weight 95.1, kg, PRN Pain Score 1-5, Start date: 04/17/18 4:01:00 CDT, Duration: 30 day, Stop date: 4:00:00 CDT Notes: Do not exceed 4 gm/day. (Same as: Tylenol) Start Date: 04/17/18 Stop Date: 04/20/18 Status: Discontinued Zofran 4 mg, 2 mL, Route: IVP, Drug form: INJ, Q6H, Dosing Weight 95.1, kg, PRN Nausea, Start date: 04/15/18 17:27:00 CDT, Duration: 30 day, Stop date: 05/15/18 17:26: 00 CDT Notes: (Same as: Zofran) MEDICATION WASTE Product Size: 4 mgProduct Was hortensia: ___ mg Start Date: 04/15/18 Stop Date: 04/20/18 Status: Discontinued Results ELECTROLYTES 1 2 3 Most recent to oldest [Reference Range]: 136 mEq/L (04/20/18 4:11 AM) 133 mEq/L *LOW* (04/19/18 7:19 AM) 132 mEq/L *LOW* (04/18/18 6:33 AM) Sodium Lvl [135-145 mEq/L] 4.4 mEq/L (04/20/18 4:11 AM) 4.4 mEq/L (04/19/18 7:19 AM) 4.4 mEq/L (04/18/18 6:33 AM) Potassium Lvl [3.5-5.1 mEq/L] 98 mEq/L (04/20/18 4:11 AM) 96 mEq/L (04/19/18 7:19 AM) 97 mEq/L (04/18/18 6:33 AM) Chloride Lvl [95-109 mEq/L] 26 mEq/L (04/20/18 4:11 AM) 27 mEq/L (04/19/18 7:19 AM) 27 mEq/L (04/18/18 6:33 AM) CO2 [24-32 mEq/L] 16.4 mEq/L (04/20/18 4:11 AM) 14.4 mEq/L (04/19/18 7:19 AM) 12.4 mEq/L (04/18/18 6:33 AM) AGAP [10.0-20.0 mEq/L] CHEM PANEL 1 2 3 Most recent to oldest [Reference Range]: 0.62 mg/dL (04/20/18 4:11 AM) 0.53 mg/dL (04/19/18 7:19 AM) 0.56 mg/dL (04/18/18 6:33 AM) Creatinine Lvl [0.50-1.40 mg/dL] 92 mL/min/1.73m2 1 *NA* (04/20/18 4:11 AM) 97 mL/min/1.73m2 2 *NA* (04/19/18 7:19 AM) 95 mL/min/1.73m2 3 *NA* (04/18/18 6:33 AM) eGFR 20 mg/dL (04/20/18 4:11 AM) 17 mg/dL (04/19/18 7:19 AM) 11 mg/dL (04/18/18 6:33 AM) BUN [7-22 mg/dL] 18 (04/15/18 11:50 AM) B/C Ratio [6-25] 81 mg/dL (04/20/18 4:11 AM) 80 mg/dL (04/19/18 7:19 AM) 81 mg/dL (04/18/18 6:33 AM) Glucose Lvl [70-99 mg/dL] 7.1 g/dL (04/15/18 11:50 AM) Total Protein [6.4-8.4 g/dL] 3.1 g/dL *LOW* (04/15/18 11:50 AM) Albumin Lvl [3.5-5.0 g/dL] 4.0 g/dL (04/15/18 11:50 AM) Globulin [2.7-4.2 g/dL] 0.8 (04/15/18 11:50 AM) A/G Ratio [0.7-1.6] 8.7 mg/dL (04/20/18 4:11 AM) 8.8 mg/dL (04/19/18 7:19 AM) 7.9 mg/dL *LOW* (04/18/18 6:33 AM) Calcium Lvl [8.5-10.5 mg/dL] 2.3 mg/dL *LOW* (04/15/18 11:50 AM) Phosphorus [2.5-4.5 mg/dL] 1.5 mg/dL *LOW* (04/15/18 11:50 AM) Magnesium Lvl [1.8-2.4 mg/dL] 24 unit/L (04/15/18 11:50 AM) ALT [0-65 unit/L] 30 unit/L (04/15/18 11:50 AM) AST [0-37 unit/L] 90 unit/L (04/15/18 11:50 AM) Alk Phos [39-136 unit/L] 0.3 mg/dL (04/15/18 11:50 AM) Bili Total [0.2-1.3 mg/dL] 60 unit/L *LOW* (04/15/18 11:50 AM) Lipase Lvl [73-393 unit/L] 230 mOsm/kg *LOW* (04/15/18 11:50 AM) Osmolality [280-300 mOsm/kg] 1Result Comment: The eGFR is calculated using [...] be mul tiplied by the estimated BMI. 2Result Comment: The eGFR is calculated using the [...] be mul tiplied by the estimated BMI. 3Result Comment: The eGFR is calculated using the [...] be mul tiplied by the estimated BMI. CARDIAC ENZYMES 1 2 3 Most recent to oldest [Reference Range]: 419 unit/L *HI* (04/15/18 11:50 AM) Total CK [12-191 unit/L] <0.02 ng/mL (04/15/18 11:50 AM) Troponin-I [0.00-0.40 ng/mL] 56 pg/mL (04/15/18 11:50 AM) BNP [<=100 pg/mL] ENDOCRINOLOGY 1 2 3 Most recent to oldest [Reference Range]: 6.8 ug/dl *NA* (04/20/18 4:11 AM) 7.8 ug/dl *NA* (04/19/18 7:19 AM) 11.9 ug/dl *NA* (04/18/18 6:33 AM) Cortisol URINE CHEM 1 2 3 Most recent to oldest [Reference Range]: 11 mEq/L *NA* (04/15/18 1:43 PM) U Sodium 6.6 mEq/L *NA* (04/15/18 1:43 PM) U Potassium <10 mEq/L *NA* (04/15/18 1:43 PM) U Chloride 281 mOsm/kg *LOW* (04/16/18 1:57 AM) 89 mOsm/kg *LOW* (04/15/18 1:43 PM) U Osmolality [300-800 mOsm/kg] URINE AND STOOL 1 2 3 Most recent to oldest [Reference Range]: Clear (04/15/18 1:43 PM) UA Turbidity [Clear] Ltyellow *NA* (04/15/18 1:43 PM) UA Color 6.0 (04/15/18 1:43 PM) UA pH [5.0-8.0] 1.003 (04/15/18 1:43 PM) UA Spec Grav [<=1.030] Negative mg/dL *NA* (04/15/18 1:43 PM) UA Glucose [Negative mg/dL] Small *ABN* (04/15/18 1:43 PM) UA Blood [Negative] 20 mg/dL *ABN* (04/15/18 1:43 PM) UA Ketones [Negative mg/dL] Negative mg/dL (04/15/18 1:43 PM) UA Protein [Negative mg/dL] <=1.0 mg/dL *NA* (04/15/18 1:43 PM) UA Urobilinogen [0.1-1.0 mg/dL] Negative *NA* (04/15/18 1:43 PM) UA Bili [Negative] Negative (04/15/18 1:43 PM) UA Leuk Est [Negative] Negative (04/15/18 1:43 PM) UA Nitrite [Negative] 1 /HPF (04/15/18 1:43 PM) UA WBC [0-5 /HPF] <1 /HPF (04/15/18 1:43 PM) UA RBC [0-2 /HPF] Occasional /HPF *NA* (04/15/18 1:43 PM) UA Bacteria [None Seen /HPF] Occasional /LPF *NA* (04/15/18 1:43 PM) UA Sq Epi [Few /LPF] IMMUNOLOGY 1 2 3 Most recent to oldest [Reference Range]: Negative *NA* (04/16/18 11:26 AM) HIV Ag/Ab 4th Gen [Negative] HEMATOLOGY 1 2 3 Most recent to oldest [Reference Range]: 9.8 K/CMM (04/20/18 4:11 AM) 10.5 K/CMM *HI* (04/18/18 6:33 AM) 9.4 K/CMM (04/15/18 11:50 AM) WBC [3.7-10.4 K/CMM] 3.89 M/CMM *LOW* (04/20/18 4:11 AM) 3.69 M/CMM *LOW* (04/18/18 6:33 AM) 4.01 M/CMM *LOW* (04/15/18 11:50 AM) RBC [4.20-5.40 M/CMM] 11.3 g/dL *LOW* (04/20/18 4:11 AM) 10.6 g/dL *LOW* (04/18/18 6:33 AM) 11.8 g/dL *LOW* (04/15/18 11:50 AM) Hgb [12.0-16.0 g/dL] 33.7 % *LOW* (04/20/18 4:11 AM) 31.4 % *LOW* (04/18/18 6:33 AM) 33.3 % *LOW* (04/15/18 11:50 AM) Hct [36.0-48.0 %] 86.7 fL (04/20/18 4:11 AM) 85.2 fL (04/18/18 6:33 AM) 83.0 fL (04/15/18 11:50 AM) MCV [80.0-98.0 fL] 29.1 pg (04/20/18 4:11 AM) 28.9 pg (04/18/18 6:33 AM) 29.3 pg (04/15/18 11:50 AM) MCH [27.0-31.0 pg] 33.5 g/dL (04/20/18 4:11 AM) 33.9 g/dL (04/18/18 6:33 AM) 35.3 g/dL (04/15/18 11:50 AM) MCHC [32.0-36.0 g/dL] 16.5 % *HI* (04/20/18 4:11 AM) 16.5 % *HI* (04/18/18 6:33 AM) 15.6 % *HI* (04/15/18 11:50 AM) RDW [11.5-14.5 %] 8.0 fL (04/20/18 4:11 AM) 7.7 fL (04/18/18 6:33 AM) 7.7 fL (04/15/18 11:50 AM) MPV [7.4-10.4 fL] 239 K/CMM (04/20/18 4:11 AM) 255 K/CMM (04/18/18 6:33 AM) 219 K/CMM (04/15/18 11:50 AM) Platelet [133-450 K/CMM] 76.6 % *HI* (04/15/18 11:50 AM) Segs [45.0-75.0 %] 7.7 % *LOW* (04/15/18 11:50 AM) Lymphocytes [20.0-40.0 %] 14.0 % *HI* (04/15/18 11:50 AM) Monocytes [2.0-12.0 %] 1.3 % (04/15/18 11:50 AM) Eosinophils [0.0-4.0 %] 0.4 % (04/15/18 11:50 AM) Basophils [0.0-1.0 %] 7.2 K/CMM (04/15/18 11:50 AM) Neutrophils # [1.5-8.1 K/CMM] 0.7 K/CMM *LOW* (04/15/18 11:50 AM) Lymphocytes # [1.0-5.5 K/CMM] 1.3 K/CMM *HI* (04/15/18 11:50 AM) Monocytes # [0.0-0.8 K/CMM] 0.1 K/CMM (04/15/18 11:50 AM) Eosinophils # [0.0-0.5 K/CMM] 13.4 seconds (04/15/18 11:50 AM) PT [12.0-14.7 seconds] 1.02 (04/15/18 11:50 AM) INR [0.85-1.17] 35.5 seconds (04/15/18 11:50 AM) PTT [22.9-35.8 seconds] Immunizations Not Given Vaccine Date Status Refusal Reason pneumococcal 13-valent vaccine 04/20/18 Not Given Patient Refuses influenza virus vaccine, inactivated 04/20/18 Not Given Patient Refuses Procedures Procedure Date Related Diagnosis Body Site Status Abdominal hysterectomy Completed Excision of ovary1 Completed Tonsillectomy Completed 1bilateral Social History Social History Type Response Substance Abuse Use: None. Alcohol Never Smoking Status Never smoker; Exposure to Tobacco Smoke None; Cigarette Smoking Last 365 Days No; Reg Smoking Cessation Counseling Yes entered on: 04/15/18 Assessment and Plan Extracted from: Title: Clinical Document Author: Shay Alvarez MD Date: 04/20/18 Psychiatry Progress Note. SHAY ALVAREZ M.D. Board Certified in Adult and Geriatric Psychiatry. Patient seen, Events noted. SUBJECTIVE : Feels ok OBJECTIVE : She is alert, awake, calm, mood fair, no agitation. Allergies: sulfa drugs, penicillins Labs (Last four charted values) WBC 9.8(APR 20)H 10.5(APR 18)9.4(APR 15) Hgb L 11.3(APR 20)L 10.6(APR 18)L 11.8(APR 15) Hct L 33.7(APR 20)L 31.4(APR 18)L 33.3(APR 15) Plt 239(APR 20)255(APR 18)219(APR 15) Na 136(APR 20)L 133(APR 19)L 132(APR 18)L 131(APR 17) K 4.4(APR 20)4.4(APR 19)4.4(APR 18)4.3(APR 17) CO2 26(APR 20)27(APR 19)27(APR 18)26(APR 17) Cl 98(APR 20)96(APR 19)97(APR 18)L 94(APR 17) Cr 0.62(APR 20)0.53(APR 19)0.56(APR 18)0.70(APR 17) BUN 20(APR 20)17(APR 19)11(APR 18)9(APR 17) Glucose Random 81(APR 20)80(APR 19)81(APR 18)98(APR 17) Mg L 1.5(APR 15) Phos L 2.3(APR 15) Ca 8.7(APR 20)8.8(APR 19)L 7.9(APR 18)L 8.2(APR 17) PT 13.4(APR 15) INR 1.02(APR 15) PTT 35.5(APR 15) Troponin <0.02(APR 15) Total CK H 419(APR 15) MENTAL STATUS EXAM: She is alert, awake, calm, no agitation ASSESSMENT: 1. Delirium due to multiple etiologies likely causes, metabolic causes hyponatremia, medication related. 2. Schizoaffective disorder- bipolar type. PLAN: Continue current treatment. OK to d/c from psychaitric stand point. Extracted from: Title: Discharge Summary * Author: Samson Hardin MD Date: 04/20/18 Discharge Information Disposition to home Condition stable Medications: See med reconciliation form Diet: Heart healthy Discharge Plan In the event of any worsening symptom patient was to come back to the ED for further evaluation Discharge summary to greater than 35 minutes Extracted from: Title: Clinical Document Author: Khari Buitrago Date: 04/15/18 [facility] CONSULT NOTE Reason for consult: severe hyponatremia History of presenting illness: Patient is a 68-year-old female who has known history of HIV currently not on any treatment states she has history of polydipsia noted on prior discharge summary, has history of bipolar disorder, she also has been on hydrochlorothiazide in the past comes in with 2-day history of nausea vomiting, she apparently has been off hydrochlorothiazide, since her last discharge. 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 FAMILY HISTORY mother discussed the Father: Heart disease Mother: Type 2 diabetes mellitus SURGICAL HISTORY Tonsillectomy Abdominal hysterectomy Excision of ovary SOCIAL HISTORY Alcohol Details: Never Tobacco Details: Use: Never smoker. Tobacco smoke exposure: None. Did the Patient Smoke Cigarettes Anytime During the Last 365 Days? No. Cessation Counseling Provided? Yes. Substance Abuse Details: Use: None. Lines, Tubes, and Drains: 04/15/2018 12:13 Peripheral Lines: Antecubital Right 20 gauge Over the needle catheter ALLERGIES Allergies (2) ActiveReaction penicillinsNone Documented sulfa drugsNone Documented Review of Systems CONSTITUTIONAL: no fever. chills. dizziness. weakness. EYES: No pain, erythema, or discharge, blurring of vision. EAR, NOSE AND THROAT: No sore throat, URI symptoms, epistaxis,tinnitus. CARDIOVASCULAR: No chest pain. No palpitations. + lower extremity edema. RESPIRATORY: No shortness of breath, cough, pain with respiration, or pleuritic chest pain. No hemoptysis. No dyspnea. No paroxysmal nocturnal dyspnea. GASTROINTESTINAL: Normal appetite. No dysphagia, nausea, vomiting, diarrhea. No pain. No bleeding. GENITOURINARY: No frequency, urgency, nocturia, hematuria or dysuria. MUSCULOSKELETAL: No arthralgias or myalgias. INTEGUMENTARY: No swelling, bruising, contusions,abrasions, lymphangitis. NEUROLOGIC: No headache, neck pain, numbness or tingling of the extremities. or weakness. METABOLIC:No history of thyroid, diabetes or adrenal problems. HEMATOLOGICAL: No bleeding, petechiae,bruising. ALLERGY: No asthma, urticaria. PSYCHIATRIC: No confusion or depression GENERAL EXAMINATION Vitals and Temp: VitalsTmp(F)[id number] 04/15 14:[id number]--- 04/15 11:53----[id number]--- 04/15 11:[id number] 4.0L/m 24 Hr Tmax: 97.9F (36.61c) at 04/15 14:37Vital Signs are the last 5 in the past 48 hours. General: Lying in bed awake interactive not in any distress eyes: Sclera anicteric, conjunctiva pink ENT: Tongue moist neck: Supple, no use of accessory muscles, no JVD Heart: Regular rate and rhythm, S1 and S2 heard, no murmurs Lungs: Clear to auscultation bilaterally, no evidence of accessory muscle use Abdomen: Soft, obese, Non tender. BS + : deferred Extremities: no evidence of edema in legs, hands and feet are cool Skin: No rashes,or bruising Neurologic: AO X 3, no focal deficit. Psych : normal mood and affect MEDICATION No qualifying data available Home Medications (9) Active amLODIPine 2.5 mg oral tablet 2.5 mg=1 tab, PO, Daily bacitracin topical 500 units/g ointment 1 appl, TOP, Q12H benztropine 1 mg oral tablet 1 mg=1 tab, PO, Q12H Depakote 250 mg oral enteric coated tablet 750 mg=3 tab, PO, QAM Depakote 250 mg oral enteric coated tablet 1,000 mg=4 tab, PO, Bedtime hydrochlorothiazide-lisinopril 25 mg-20 mg oral tablet 1 tab, PO, Daily MiraLax oral powder for reconstitution 17 gm, PO, Daily Risperdal 2 mg oral tablet 2 mg=1 tab, PO, QAM Risperdal 4 mg oral tablet 4 mg=1 tab, PO, Bedtime LABS Labs (Last four charted values) WBC 9.4(APR 15) Hgb L 11.8(APR 15) Hct L 33.3(APR 15) Plt 219(APR 15) Na C 111(APR 15) K 3.5(APR 15) CO2 30(APR 15) Cl L 70(APR 15) Cr L 0.44(APR 15) BUN 8(APR 15) Glucose Random 98(APR 15) Mg L 1.5(APR 15) Phos L 2.3(APR 15) Ca L 8.3(APR 15) PT 13.4(APR 15) INR 1.02(APR 15) PTT 35.5(APR 15) Troponin <0.02(APR 15) Total CK H 419(APR 15) Radiology IMPRESSION: 1. Small lung volumes with mild accentuation of the pulmonary vascularity. No confluent infiltrates in the lungs. IMPRESSION: severe Hyponatremia Psychogenic polydipsea Bipolar disorder HIV Obesity Questionable noncompliance PLAN : Patient noted clinical hyponatremia with sodium of 111, this is significantly lower compared to her last sodium level of 130 in the system,She was started on 75 cc of fluid in the ER, I had ordered a stat BMP repeat which came back as 180 which is a quite rapid increase hence I went ahead and stop the fluids. Nephrology has also been consulted and plan to do BMP every 4 hours. We will likely stop all fluid and allow the sodium to rise as we increase the potassium She is stable there is no signs of infection hold off on antibiotics. ID has been consulted for HIV evaluation. Thank you for involving us in the care of the patient I spent 35 min of Critical care time , in reviewing, laboratory and radiographic data,in direct management of patient at bedside as well as coordination .Time spent does not include time spent by any other provider or time spent in doing procedure. Patient required critical care due to the acute impairment of vital organ systems and a high probability of imminent and life threatening deterioration. None Specified=FULL CODE Khari Buitrago MD MPH Pulmonary and Critical Care Medicine
--- OUTSIDE RECORDS SUMMARY | 2018-11-27 14:28 | XMS REPORT | Summary of Care ---
Author Author [facility] Organization [facility] Address Unknown Phone Unavailable Encounter ALEISHA Beebe(DONNA) [id number] Date(s): 03/18/18 - 03/21/18 [facility] [address] [place] [address]- [phone] Encounter Diagnosis Hypo-osmolality and hyponatremia (Final) - 04/10/18 Bipolar disorder, unspecified (Final) - Essential (primary) hypertension (Final) - Epilepsy, unspecified, not intractable, without status epilepticus (Final) - Unspecified psychosis not due to a substance or known physiological condition (Final) - Other halfway (current) drug therapy (Final) - Discharge Disposition: DC/TF To Psych Hosp Attending Physician: William Barbosa MD Admitting Physician: William Barbosa MD Vital Signs 1 2 3 Most recent to oldest [Reference Range]: 170.18 cm (03/17/18 10:35 PM) 167.64 cm (03/17/18 5:41 PM) Height 97.727 kg (03/21/18 9:00 AM) 98.21 kg (03/18/18 8:30 AM) Current Weight 97.9 DegF (03/21/18 7:28 AM) 98.3 DegF (03/20/18 6:30 PM) 97.8 DegF (03/20/18 2:00 PM) Temperature Oral [96.4-99.1 DegF] 127/79 mmHg (03/21/18 7:28 AM) 133/77 mmHg (03/20/18 6:30 PM) 117/70 mmHg (03/20/18 2:00 PM) Blood Pressure [90-140/60-90 mmHg] 18 BRMIN (03/21/18 7:28 AM) 17 BRMIN (03/20/18 6:30 PM) 18 BRMIN (03/20/18 2:00 PM) Respiratory Rate [14-20 BRMIN] 76 bpm (03/21/18 7:28 AM) 74 bpm (03/20/18 6:30 PM) 69 bpm (03/20/18 2:00 PM) Peripheral Pulse Rate [60-100 bpm] 96.364 kg (03/17/18 10:35 PM) 101.091 kg (03/17/18 5:41 PM) Weight 33.27 m2 (03/17/18 10:35 PM) 35.97 m2 (03/17/18 5:41 PM) Body Mass Index Problem List Condition Effective Dates Status Health Status Informant Simple Active obesity(Confirmed) Allergies, Adverse Reactions, Alerts Substance Reaction Severity Status penicillins Active sulfa drugs Active Medications acetaminophen 650 mg, 2 tab, Route: PO, Drug form: TAB, Q6H, Dosing Weight 96.364, kg, PRN Hea dache 1-5, Start date: 03/18/18 1:06:00 CDT, Duration: 30 day, Stop date: 1:05:00 CDT Start Date: 03/18/18 Stop Date: 03/21/18 Status: Discontinued amLODIPine 2.5 mg, 1 tab, Route: PO, Drug form: TAB, Daily, Dosing Weight 96.364, kg, Start date: 03/20/18 9:00:00 CDT, Duration: 30 day, Stop date: 04/18/18 9:00:00 CDT Notes: (Same as: Norvasc) Start Date: 03/20/18 Stop Date: 03/21/18 Status: Discontinued Ativan 2 mg, 1 mL, Route: IVP, Drug form: INJ, ONCE, Dosing Weight 96.364, kg, PRN Seiz ure, Start date: 03/19/18 1:15:00 CDT Notes: (Same as: Ativan) Start Date: 03/19/18 Stop Date: 03/21/18 Status: Discontinued BD Normal Saline Flush 25 mL, Route: IV, Drug Form: INJ, PRN, PRN Line Flush, Start date: 03/17/18 22:1 4:00 CDT, Duration: 30 day, Stop date: 04/16/18 22:13:00 CDT Notes: (Same as: BD Posiflush) Start Date: 03/17/18 Stop Date: 03/21/18 Status: Discontinued BD Normal Saline Flush 10 mL, Route: IV, Drug Form: INJ, PRN, PRN Line Flush, Start date: 03/17/18 22:1 4:00 CDT, Duration: 30 day, Stop date: 04/16/18 22:13:00 CDT Notes: (Same as: BD Posiflush) Start Date: 03/17/18 Stop Date: 03/21/18 Status: Discontinued benztropine 1 mg, 1 tab, Route: PO, Drug form: TAB, BID, Dosing Weight 96.364, kg, Start pierce e: 03/19/18 9:00:00 CDT, Duration: 30 day, Stop date: 04/17/18 17:00:00 CDT Notes: (Same As: Cogentin) Start Date: 03/19/18 Stop Date: 03/21/18 Status: Discontinued demeclocycline 300 mg, 2 tab, Route: PO, Drug form: TAB, BID, Dosing Weight 96.364, kg, Start d ate: 03/18/18 9:00:00 CDT, Duration: 30 day, Stop date: 04/16/18 17:00:00 CDT Notes: (Same As: Declomycin) Start Date: 03/18/18 Stop Date: 03/19/18 Status: Discontinued Depakote 500 mg, PO, BID, 0 Refill(s) Start Date: 03/17/18 Stop Date: 04/15/18 Status: Deleted Depakote 500 mg oral enteric coated tablet 750 mg, 3 tab, Route: PO, Drug form: ECTAB, BID, Dosing Weight 96.364, kg, Start date: 03/19/18 9:00:00 CDT, Duration: 30 day, Stop date: 04/17/18 17:00:00 CDT Notes: (Same as: Depakote Delayed Release) Do not confuse with the extended-rel ease tablet. Delayed absorption, enteric coated tablet. Do not crush Start Date: 03/19/18 Stop Date: 03/21/18 Status: Discontinued docusate sodium 100 mg, 1 cap, Route: PO, Drug form: CAP, BID, Dosing Weight 96.364, kg, Start d ate: 03/19/18 9:00:00 CDT, Duration: 30 day, Stop date: 04/17/18 17:00:00 CDT Notes: (Same as: Colace) (Do Not Crush) Start Date: 03/19/18 Stop Date: 03/21/18 Status: Discontinued docusate sodium 100 mg, PO, BID, 0 Refill(s) Start Date: 03/17/18 Stop Date: 04/15/18 Status: Deleted hydrochlorothiazide 25 mg, PO, Daily, administer with lisinopril. hold if BP<120/70, 0 Refill(s) Start Date: 03/17/18 Stop Date: 04/15/18 Status: Deleted lisinopril 20 mg, 1 tab, Route: PO, Drug form: TAB, Daily, Dosing Weight 96.364, kg, Start date: 03/19/18 9:00:00 CDT, Duration: 30 day, Stop date: 04/17/18 9:00:00 CDT Notes: (Same as: Prinivil, Zestril) Start Date: 03/19/18 Stop Date: 03/20/18 Status: Discontinued lisinopril 20 mg, PO, Daily, 0 Refill(s) Start Date: 03/17/18 Stop Date: 04/15/18 Status: Deleted magnesium sulfate 2gm / NS 50ml (premixed) 2 gm, 50 mL, Route: IVPB, Drug form: INJ, ONCE, Dosing Weight 96.364, kg, Start date: 03/18/18 7:35:00 CDT, Stop date: 03/18/18 7:35:00 CDT Notes: WASTE: F/P - Sink; E - Municipal Trash Bin Start Date: 03/18/18 Stop Date: 03/18/18 Status: Completed MiraLax 17 gm, PO, Daily, 0 Refill(s) Start Date: 03/17/18 Stop Date: 04/15/18 Status: Deleted MiraLax 17 gm, 1 pkt, Route: PO, Drug form: PWDR, Daily, Dosing Weight 96.364, kg, Start date: 03/19/18 9:00:00 CDT, Duration: 30 day, Stop date: 04/17/18 9:00:00 CDT Notes: Dissolve in 8 oz of water or juice.(Same as: Miralax) Start Date: 03/19/18 Stop Date: 03/21/18 Status: Discontinued NS 1,000 mL 1,000 mL, Rate: 75 ml/hr, Infuse over: 13.3 hr, Route: IV, Dosing Weight 101.091 kg, Total Volume: 1,000, Start date: 03/17/18 20:40:00 CDT, Duration: 30 day, S top date: 04/16/18 20:39:00 CDT, 2.2, m2 Start Date: 03/17/18 Stop Date: 03/17/18 Status: Discontinued Risperdal 2 mg, 2 tab, Route: PO, Drug form: TAB, BID, Dosing Weight 96.364, kg, Start pierce e: 03/19/18 9:00:00 CDT, Duration: 30 day, Stop date: 04/17/18 17:00:00 CDT Notes: (Same as: Risperdal) Start Date: 03/19/18 Stop Date: 03/21/18 Status: Discontinued Risperdal 2 mg, PO, BID, 0 Refill(s) Start Date: 03/17/18 Stop Date: 04/15/18 Status: Deleted Sodium Chloride 0.9% IV 1,000 mL 1,000 mL, Rate: 75 ml/hr, Infuse over: 13.3 hr, Route: IV, Dosing Weight 101.091 kg, Total Volume: 1,000, Start date: 03/17/18 22:01:00 CDT, Duration: 2 doses or times, Stop date: 03/19/18 0:36:00 CDT, 2.2, m2 Start Date: 03/17/18 Stop Date: 03/17/18 Status: Discontinued sodium chloride 1 gm oral tablet 2 gm, 2 tab, Route: PO, Drug form: TAB, BID, Dosing Weight 101.091, kg, Priority : NOW, Start date: 03/17/18 22:11:00 CDT, Duration: 30 day, Stop date: 04/16/18 17:00:00 CDT Start Date: 03/17/18 Stop Date: 03/19/18 Status: Discontinued sodium chloride 1 gm oral tablet 1 gm, 1 tab, Route: PO, Drug form: TAB, BID, Dosing Weight 101.091, kg, Start da te: 03/19/18 9:00:00 CDT, Duration: 30 day, Stop date: 04/17/18 17:00:00 CDT Start Date: 03/19/18 Stop Date: 03/21/18 Status: Discontinued Trileptal 150 mg, 1 tab, Route: PO, Drug form: TAB, Bedtime, Dosing Weight 96.364, kg, Sta rt date: 03/18/18 21:29:00 CDT, Duration: 30 day, Stop date: 04/17/18 21:00:00 C DT Notes: Do not crush or chew.(Same as: Trileptal) Start Date: 03/18/18 Stop Date: 03/19/18 Status: Discontinued Trileptal 150 mg oral tablet 150 mg=1 tab, PO, Bedtime, 0 Refill(s) Start Date: 03/17/18 Stop Date: 04/15/18 Status: Deleted Results ELECTROLYTES 1 2 3 Most recent to oldest [Reference Range]: 130 mEq/L *LOW* (03/21/18 5:28 AM) 129 mEq/L *LOW* (03/20/18 6:04 AM) 130 mEq/L *LOW* (03/19/18 1:18 AM) Sodium Lvl [135-145 mEq/L] 4.3 mEq/L (03/21/18 5:28 AM) 4.6 mEq/L (03/19/18 1:18 AM) 4.2 mEq/L (03/18/18 6:20 AM) Potassium Lvl [3.5-5.1 mEq/L] 95 mEq/L (03/21/18 5:28 AM) 92 mEq/L *LOW* (03/19/18 1:18 AM) 85 mEq/L *LOW* (03/18/18 6:20 AM) Chloride Lvl [95-109 mEq/L] 29 mEq/L (03/21/18 5:28 AM) 30 mEq/L (03/19/18 1:18 AM) 28 mEq/L (03/18/18 6:20 AM) CO2 [24-32 mEq/L] 10.3 mEq/L (03/21/18 5:28 AM) 12.6 mEq/L (03/19/18 1:18 AM) 13.2 mEq/L (03/18/18 6:20 AM) AGAP [10.0-20.0 mEq/L] CHEM PANEL 1 2 3 Most recent to oldest [Reference Range]: 0.59 mg/dL (03/21/18 5:28 AM) 0.74 mg/dL (03/19/18 1:18 AM) 0.78 mg/dL (03/18/18 6:20 AM) Creatinine Lvl [0.50-1.40 mg/dL] 94 mL/min/1.73m2 1 *NA* (03/21/18 5:28 AM) 83 mL/min/1.73m2 2 *NA* (03/19/18 1:18 AM) 78 mL/min/1.73m2 3 *NA* (03/18/18 6:20 AM) eGFR 15 mg/dL (03/21/18 5:28 AM) 14 mg/dL (03/19/18 1:18 AM) 13 mg/dL (03/18/18 6:20 AM) BUN [7-22 mg/dL] 16 (03/17/18 6:35 PM) B/C Ratio [6-25] 94 mg/dL (03/21/18 5:28 AM) 113 mg/dL *HI* (03/19/18:18 AM) 96 mg/dL (03/18/18 6:20 AM) Glucose Lvl [70-99 mg/dL] 7.5 g/dL (03/17/18 6:35 PM) Total Protein [6.4-8.4 g/dL] 3.3 g/dL *LOW* (03/17/18 6:35 PM) Albumin Lvl [3.5-5.0 g/dL] 4.2 g/dL (03/17/18 6:35 PM) Globulin [2.7-4.2 g/dL] 0.8 (03/17/18 6:35 PM) A/G Ratio [0.7-1.6] 8.9 mg/dL (03/21/18 5:28 AM) 9.7 mg/dL (03/19/18 1:18 AM) 8.7 mg/dL (03/18/18 6:20 AM) Calcium Lvl [8.5-10.5 mg/dL] 1.7 mg/dL *LOW* (03/18/18 6:20 AM) Magnesium Lvl [1.8-2.4 mg/dL] 17 unit/L (03/17/18 6:35 PM) ALT [0-65 unit/L] 9 unit/L (03/17/18 6:35 PM) AST [0-37 unit/L] 111 unit/L (03/17/18 6:35 PM) Alk Phos [39-136 unit/L] 0.3 mg/dL (03/17/18 6:35 PM) Bili Total [0.2-1.3 mg/dL] 261 mOsm/kg *LOW* (03/18/18 6:20 AM) Osmolality [280-300 mOsm/kg] 1Result Comment: The [...] 3 Most recent to oldest [Reference Range]: <0.02 ng/mL (03/17/18 6:35 PM) Troponin-I [0.00-0.40 ng/mL] LIPIDS 1 2 3 Most recent to oldest [Reference Range]: 4.05 (03/18/18 6:20 AM) CHD Risk [3.90-5.80] 178 mg/dL (03/18/18 6:20 AM) Chol [<=199 mg/dL] 166 mg/dL *HI* (03/18/18 6:20 AM) Trig [<=149 mg/dL] 44 mg/dL *LOW* (03/18/18 6:20 AM) HDL [>=61 mg/dL] 101 mg/dL *HI* (03/18/18 6:20 AM) LDL (Calculated) [<=99 mg/dL] 33 *NA* (03/18/18 6:20 AM) VLDL TOXICOLOGY 1 2 3 Most recent to oldest [Reference Range]: 29 ug/ml *LOW* (03/18/18 7:48 PM) Valproic Acid Lvl [50-100 ug/ml] URINE CHEM 1 2 3 Most recent to oldest [Reference Range]: 43 mEq/L *NA* (03/17/18 7:58 PM) U Sodium 15.1 mEq/L *NA* (03/17/18 7:58 PM) U Potassium 46 mEq/L *NA* (03/17/18 7:58 PM) U Chloride 215 mOsm/kg *LOW* (03/17/18 7:58 PM) U Osmolality [300-800 mOsm/kg] URINE AND STOOL 1 2 3 Most recent to oldest [Reference Range]: Clear (03/17/18 7:58 PM) UA Turbidity [Clear] Light Yellow *NA* (03/17/18 7:58 PM) UA Color [Yellow] 6.0 (03/17/18 7:58 PM) UA pH [5.0-8.0] 1.005 (03/17/18 7:58 PM) UA Spec Grav [<=1.030] Negative mg/dL *NA* (03/17/18 7:58 PM) UA Glucose [Negative mg/dL] Negative (03/17/18 7:58 PM) UA Blood [Negative] Negative mg/dL *NA* (03/17/18 7:58 PM) UA Ketones [Negative mg/dL] Negative mg/dL (03/17/18 7:58 PM) UA Protein [Negative mg/dL] <=1.0 mg/dL *NA* (03/17/18 7:58 PM) UA Urobilinogen [0.1-1.0 mg/dL] Negative *NA* (03/17/18 7:58 PM) UA Bili [Negative] Negative (03/17/18 7:58 PM) UA Leuk Est [Negative] Negative (03/17/18 7:58 PM) UA Nitrite [Negative] 1 /HPF (03/17/18 7:58 PM) UA WBC [0-5 /HPF] Occasional /LPF *NA* (03/17/18 7:58 PM) UA Sq Epi [Few /LPF] HEMATOLOGY 1 2 3 Most recent to oldest [Reference Range]: 8.9 K/CMM (03/19/18 1:18 AM) 7.9 K/CMM (03/18/18 6:20 AM) 8.8 K/CMM (03/17/18 6:35 PM) WBC [3.7-10.4 K/CMM] 4.33 M/CMM (03/19/18 1:18 AM) 4.02 M/CMM *LOW* (03/18/18 6:20 AM) 4.37 M/CMM (03/17/18 6:35 PM) RBC [4.20-5.40 M/CMM] 12.2 g/dL (03/19/18:18 AM) 11.6 g/dL *LOW* (03/18/18:20 AM) 12.5 g/dL (03/17/18 6:35 PM) Hgb [12.0-16.0 g/dL] 36.2 % (03/19/18:18 AM) 33.6 % *LOW* (03/18/18:20 AM) 36.1 % (03/17/18 6:35 PM) Hct [36.0-48.0 %] 83.7 fL (03/19/18:18 AM) 83.6 fL (03/18/18 6:20 AM) 82.6 fL (03/17/18 6:35 PM) MCV [80.0-98.0 fL] 28.3 pg (03/19/18:18 AM) 28.9 pg (03/18/18 6:20 AM) 28.5 pg (03/17/18 6:35 PM) MCH [27.0-31.0 pg] 33.8 g/dL (03/19/18:18 AM) 34.5 g/dL (03/18/18 6:20 AM) 34.5 g/dL (03/17/18 6:35 PM) MCHC [32.0-36.0 g/dL] 15.0 % *HI* (03/19/18:18 AM) 15.1 % *HI* (03/18/18:20 AM) 14.8 % *HI* (03/17/18 6:35 PM) RDW [11.5-14.5 %] 8.1 fL (03/19/18:18 AM) 7.6 fL (03/18/18 6:20 AM) 7.7 fL (03/17/18 6:35 PM) MPV [7.4-10.4 fL] 335 K/CMM (03/19/18:18 AM) 292 K/CMM (03/18/18 6:20 AM) 304 K/CMM (03/17/18 6:35 PM) Platelet [133-450 K/CMM] 56.7 % (03/19/18 1:18 AM) 59.5 % (03/18/18 6:20 AM) 61.2 % (03/17/18 6:35 PM) Segs [45.0-75.0 %] 29.1 % (03/19/18 1:18 AM) 24.5 % (03/18/18 6:20 AM) 25.8 % (03/17/18 6:35 PM) Lymphocytes [20.0-40.0 %] 11.7 % (03/19/18 1:18 AM) 12.3 % *HI* (03/18/18 6:20 AM) 10.0 % (03/17/18 6:35 PM) Monocytes [2.0-12.0 %] 2.0 % (03/19/18 1:18 AM) 2.6 % (03/18/18 6:20 AM) 2.3 % (03/17/18 6:35 PM) Eosinophils [0.0-4.0 %] 0.5 % (03/19/18 1:18 AM) 1.1 % *HI* (03/18/18 6:20 AM) 0.7 % (03/17/18 6:35 PM) Basophils [0.0-1.0 %] 5.1 K/CMM (03/19/18 1:18 AM) 4.7 K/CMM (03/18/18 6:20 AM) 5.4 K/CMM (03/17/18 6:35 PM) Neutrophils # [1.5-8.1 K/CMM] 2.6 K/CMM (03/19/18 1:18 AM) 1.9 K/CMM (03/18/18 6:20 AM) 2.3 K/CMM (03/17/18 6:35 PM) Lymphocytes # [1.0-5.5 K/CMM] 1.0 K/CMM *HI* (03/19/18 1:18 AM) 1.0 K/CMM *HI* (03/18/18 6:20 AM) 0.9 K/CMM *HI* (8/28/18 6:35 PM) Monocytes # [0.0-0.8 K/CMM] 0.2 K/CMM (03/19/18 1:18 AM) 0.2 K/CMM (03/18/18 6:20 AM) 0.2 K/CMM (03/17/18 6:35 PM) Eosinophils # [0.0-0.5 K/CMM] 0.1 K/CMM (03/18/18 6:20 AM) 0.1 K/CMM (03/17/18 6:35 PM) Basophils # [0.0-0.2 K/CMM] Immunizations Not Given Vaccine Date Status Refusal [...] 04/15/18 Assessment and Plan Extracted from: Title: Consult Note Author: Freddy Craig MD Date: 03/19/18 Epileptic seizures related to external causes, not intractable, without status epilepticus Ordered: [id number] Initial Inpatient Consult New/Estab Pt 80 Min, 03/19/18 18:49:00 CDT, 24 hr Hyponatremia Ordered: [id number] Initial Inpatient Consult New/Estab Pt 80 Min, 03/19/18 18:49:00 CDT, 24 hr Other epilepsy, not intractable, without status epilepticus Ordered: [id number] Initial Inpatient Consult New/Estab Pt 80 Min, 03/19/18 18:49:00 CDT, 24 hr - Reported history of seizure disorder, with episode yesterday consistent with an epileptic seizure in the setting of hyponatremia which may be iatrogenic (BRIDGETT/HCTZ, oxcarbazepine) or due to psychogenic polydipsia - Psychotic disorder - Will discontinue oxcarbazepine. - Will increase Depakote to 750 mg BID. - Continue sodium correction per nephrology recommendations. Neurology will follow up if needed.
[2018-11-27] MEDS ORDERED: SODIUM CHLORIDE 0.9% 1000ML 1,000 ML ONE (14:42)
[2018-11-27 15:11] LABS: BASOPHILS % 0.3 % (0.0-1.0); EOSINOPHILS % 0.3 % (0.0-6.0); HEMATOCRIT 35.7 % (34.2-44.1); HEMOGLOBIN 11.8 g/dL (12.0-16.0); LYMPHOCYTES # (AUTO) 2.2 (1.0-3.2); LYMPHOCYTES % 14.9 % (18.0-39.1); MEAN CORPUSCULAR HEMOGLOBIN 28.5 pg (28-32); MEAN CORPUSCULAR HGB CONC 33.1 g/dL (31-35); MEAN CORPUSCULAR VOLUME 86.2 fL (81-99); MONOCYTES # (AUTO) 1.2 (0.2-0.8); NEUTROPHILS # (AUTO) 11.2 (2.1-6.9); NEUTROPHILS % 76.2 % (38.7-80.0); PLATELET COUNT 311 x10e3/uL (140-360); RED BLOOD COUNT 4.14 x10e6/uL (3.6-5.1); RED CELL DISTRIBUTION WIDTH 14.6 % (11.7-14.4)
[2018-11-27 15:16] LABS: CLARITY,URINE SL CLOUDY (CLEAR); COLOR,URINE YELLOW (YELLOW); KETONES,URINE NEGATIVE (NEGATIVE); LEUKOCYTE ESTERASE ,URINE 1+ (NEGATIVE); NITRITE,URINE POSITIVE (NEGATIVE); PROTEIN,URINE DIPSTICK NEGATIVE (NEGATIVE); URINE UROBILINOGEN 0.2 mg/dL (0.2 - 1)
[2018-11-27 15:17] LABS: BILIRUBIN,URINE NEGATIVE (NEGATIVE)
[2018-11-27 15:25] LABS: INR 0.92; PARTIAL THROMBOPLASTIN TIME 30.5 seconds (23.8-35.5); PROTHROMBIN TIME 12.8 seconds (11.9-14.5)
[2018-11-27 15:26] LABS: BACTERIA,URINE MANY /HPF; RBC,URINE 0-5 /HPF (0-5)
[2018-11-27 15:36] LABS: ALANINE AMINOTRANSFERASE 14 IU/L (0-55); ALBUMIN 4.1 g/dL (3.5-5.0); ALKALINE PHOSPHATASE 148 IU/L (40-150); ANION GAP 17.1 mmol/L (8-16); BLOOD UREA NITROGEN 9 mg/dL (7-26); BUN/CREATININE RATIO 12 (6-25); CALCIUM 10.4 mg/dL (8.4-10.2); CARBON DIOXIDE 27 mmol/L (22-29); CHLORIDE 87 mmol/L (98-107); CREATINE KINASE 242 IU/L (29-168); CREATININE, SERUM 0.76 mg/dL (0.57-1.11); EST GLOMERULAR FILTRATION RATE > 60 ML/MIN (60-); GLUCOSE 116 mg/dL (74-118); POTASSIUM 4.1 mmol/L (3.5-5.1); SODIUM 127 mmol/L (136-145)
[2018-11-27] MEDS ORDERED: CEFTRIAXONE SOD 1 GM VIAL ONE (15:37)
[2018-11-27] MEDS ORDERED: SODIUM CHLORIDE 0.9% 1000ML 1,000 ML IV SCH (15:45)
[2018-11-27] MEDS ORDERED: CEFTRIAXONE SOD 1 GM VIAL IV ONE (15:45)
--- NOTE | 2018-11-27 16:23 | Diagnostic Imaging Report ---
EXAMINATION: CHEST SINGLE (PORTABLE) INDICATION: Altered mental status. COMPARISON: None FINDINGS: TUBES and LINES: None. LUNGS: Patchy density in the lung bases with mild elevation of the right hemidiaphragm suggestive of subsegmental atelectasis. There is no evidence of pneumonia or pulmonary edema. PLEURA: No pleural effusion or pneumothorax. HEART AND MEDIASTINUM: The cardiomediastinal silhouette is unremarkable. BONES AND SOFT TISSUES: No acute osseous lesion. Soft tissues are unremarkable. UPPER ABDOMEN: No free air under the diaphragm. IMPRESSION: Bibasilar subsegmental atelectasis. Signed by: Dr. Pratima Mcbride M.D. on 11/27/2018 4:20 PM
[2018-11-27] MEDS ORDERED: PROMETHAZINE HCL (IM) 25 MG/ML VIAL IV PRN (17:15)
--- NOTE | 2018-11-27 17:16 | NUR ---
REPORT TO OSITO HAYDEN
[2018-11-27] MEDS ORDERED: PROMETHAZINE 12.5MG/ NACL 0.9% 50 ML IV PRN (17:30)
[2018-11-27 19:48] VITALS: BP 110/60
[2018-11-27 19:55] VITALS: BP 110/60
[2018-11-27 20:00] VITALS: BP 110/60
--- NOTE | 2018-11-27 20:00 | NUR ---
Initial nursing assessment. Pt alert and orient to name, "I know I'm in the hospital because I have pneumonia". Pt is not orient to correct Dx: UTI, hyponatremia. Skin warm and intact, healing 1 inch scar to right LE, no bleeding noted. c/o 710 bilateral leg pain, refuses pain medication. Pt constantly moves legs, restless. +2 LE pulses. lungs CTA. Oral Oral mucosa pink and dry. Cap refill immediate. abdomen soft and nontender. Last BM, 11/27/18. Denies dysuria. Ambulates steady. Pt c/o being weak. Pt not fully aware of medical hx and medications. Henry to room. Call mccoy within reach. Bed low and locked. Bed alarm on. Will continue to monitor.
--- NOTE | 2018-11-27 20:35 | NUR ---
Pt projectile vomited x2 greenish tinged substance. Abd soft, non-tender, bowel sounds + x4 quads. Pt c/o "not feeling well". Admin prn promethazine IV. 20g IV right AC patent, NS @100ml/hr. Call mccoy within reach. Will continue to monitor.
--- NOTE | 2018-11-27 22:00 | NUR ---
x2 large loose stools with foul odor. CDiff isolation precautions initiated. Stool sample collected for lab analysis. Pt cleaned and linens changed.
[2018-11-28] VITALS (8 sets, daily range): BP systolic 117–133; BP diastolic 55–69
[2018-11-28 01:57] LABS: CREATINE KINASE 220 IU/L (29-168)
[2018-11-28] MEDS: CEFTRIAXONE SOD 1 GM/NS 50 ML 50 ML IV SCH ×2 (03:00→15:45)
[2018-11-28 06:18] LABS: BASOPHILS % 0.2 % (0.0-1.0); EOSINOPHILS # (AUTO) 0.1 (0.0-0.4); EOSINOPHILS % 1.1 % (0.0-6.0); HEMATOCRIT 31.5 % (34.2-44.1); HEMOGLOBIN 10.9 g/dL (12.0-16.0); LYMPHOCYTES # (AUTO) 1.6 (1.0-3.2); LYMPHOCYTES % 14.7 % (18.0-39.1); MEAN CORPUSCULAR HEMOGLOBIN 29.2 pg (28-32); MEAN CORPUSCULAR HGB CONC 34.6 g/dL (31-35); MEAN CORPUSCULAR VOLUME 84.5 fL (81-99); MONOCYTES # (AUTO) 0.9 (0.2-0.8); NEUTROPHILS # (AUTO) 8.2 (2.1-6.9); NEUTROPHILS % 75.7 % (38.7-80.0); PLATELET COUNT 264 x10e3/uL (140-360); RED BLOOD COUNT 3.73 x10e6/uL (3.6-5.1); RED CELL DISTRIBUTION WIDTH 15.1 % (11.7-14.4)
[2018-11-28] MEDS: SODIUM CHLORIDE 0.9% 1000ML 1,000 ML IV SCH ×2 (06:39→16:52)
--- NOTE | 2018-11-28 06:41 | NUR ---
Pt alert and orient to name. Pt stated, "I feel better. I got a good night sleep". Denies n/v. No acute distress noted. Call mccoy within reach.
[2018-11-28 06:46] LABS: ALANINE AMINOTRANSFERASE 12 IU/L (0-55); ALBUMIN 3.1 g/dL (3.5-5.0); ALBUMIN/GLOBULIN RATIO 0.9 (0.8-2.0); ALKALINE PHOSPHATASE 103 IU/L (40-150); ANION GAP 11.7 mmol/L (8-16); BLOOD UREA NITROGEN 10 mg/dL (7-26); BUN/CREATININE RATIO 14 (6-25); CALCIUM 8.9 mg/dL (8.4-10.2); CARBON DIOXIDE 27 mmol/L (22-29); CHLORIDE 98 mmol/L (98-107); CREATININE, SERUM 0.69 mg/dL (0.57-1.11); EST GLOMERULAR FILTRATION RATE > 60 ML/MIN (60-); GLUCOSE 97 mg/dL (74-118); POTASSIUM 3.7 mmol/L (3.5-5.1); SODIUM 133 mmol/L (136-145)
[2018-11-28 10:00] LABS: CREATINE KINASE 188 IU/L (29-168)
--- NOTE | 2018-11-28 10:03 | NUR ---
Dr. Mir called and made aware that he is attending physician.
[2018-11-28] MEDS ORDERED: ACETAMINOPHEN 325 MG TAB PO PRN (17:15)
--- NOTE | 2018-11-28 19:20 | NUR ---
Completed rounds with morning nurse. Pt alert to name. Denies pain at this time. Call mccoy within reach. Will continue to monitor.
[2018-11-29] VITALS (8 sets, daily range): BP systolic 119–166; BP diastolic 60–82
[2018-11-29] MEDS: SODIUM CHLORIDE 0.9% 1000ML 1,000 ML IV SCH ×2 (03:00→17:29)
[2018-11-29] MEDS: CEFTRIAXONE SOD 1 GM/NS 50 ML 50 ML IV SCH ×2 (03:00→15:20)
--- NOTE | 2018-11-29 07:04 | NUR ---
Pt lying in bed. No distress noted. Report given to morning nurse.
--- NOTE | 2018-11-29 08:20 | NUR ---
patient resting in bed, alert with no distress, tolerated breakfast, denies any pain
--- NOTE | 2018-11-29 18:22 | NUR ---
patient resting in bed, no distress noted, on IV fluids
--- NOTE | 2018-11-29 19:15 | NUR ---
Completed bedside rounds with morning nurse. Pt alert and orient to name. Lying in bed HOB 60 degrees. Denies pain at this time. Call mccoy within reach. Will continue to monitor.
[2018-11-30] VITALS: BP 147/76
[2018-11-30] MEDS: CEFTRIAXONE SOD 1 GM/NS 50 ML 50 ML IV SCH (03:00)
[2018-11-30 04:00] VITALS: BP 144/77
--- NOTE | 2018-11-30 06:45 | NUR ---
Pt awake and alert. Lying in bed HOB 45 degrees. Denies pain at this time. 22g IV right hand patent. Call mccoy within reach. Bed low and locked.
[2018-11-30] MEDS ORDERED: KEFLEX500 MG PO (06:58)
--- NOTE | 2018-11-30 07:33 | NUR ---
H&P cc: change in mental state HPI: [id number], PCP unknown, developed change in mental status, found to have UTI and hyponatremia. PMH: HTN, stroke, paranoia, seizures PShx: hysterectomy, cholecystectomy Allergies; see emr Fh/SH; ; no cigs meds; see MAR ROS: no f/c/s/N/V/D/AQUINO/vision changes/skin rash/cp/sob/back pain v/s; revd PE tired appeairng anicteric ns1s2 mod bs soft nt nd no e/t alert; appropriate; rubalcava skin dry n. affect labs/meds; revd A/P: 68yoF Hyponatremia Dehydration Hypercalcemia UTI with E.coli N. anemia PLAN IV abx; IVF Restart home meds; Home on keflex for E.coli UTI.
[2018-11-30 07:45] VITALS: BP 177/72
--- NOTE | 2018-11-30 07:45 | NUR ---
PATIENT SITTING UP IN BED WATCHING TV, NO DISTRESS NOTED. DENIED PAIN AT THIS TIME. BED IN LOWER POSITION, CALL LIGHT AT REACH.
[2018-11-30 08:00] VITALS: BP 177/72
[2018-11-30 08:07] LABS: BASOPHILS % 0.4 % (0.0-1.0); EOSINOPHILS # (AUTO) 0.3 (0.0-0.4); HEMOGLOBIN 10.3 g/dL (12.0-16.0); LYMPHOCYTES # (AUTO) 2.1 (1.0-3.2); LYMPHOCYTES % 25.2 % (18.0-39.1); MEAN CORPUSCULAR HEMOGLOBIN 28.4 pg (28-32); MEAN CORPUSCULAR HGB CONC 32.2 g/dL (31-35); MEAN CORPUSCULAR VOLUME 88.2 fL (81-99); MONOCYTES # (AUTO) 0.7 (0.2-0.8); MONOCYTES % 8.5 % (4.4-11.3); NEUTROPHILS # (AUTO) 5.2 (2.1-6.9); NEUTROPHILS % 62.5 % (38.7-80.0); PLATELET COUNT 255 x10e3/uL (140-360); RED BLOOD COUNT 3.63 x10e6/uL (3.6-5.1); RED CELL DISTRIBUTION WIDTH 15.2 % (11.7-14.4)
[2018-11-30 08:28] LABS: ANION GAP 13.6 mmol/L (8-16); BLOOD UREA NITROGEN 7 mg/dL (7-26); BUN/CREATININE RATIO 11 (6-25); CALCIUM 9.5 mg/dL (8.4-10.2); CARBON DIOXIDE 26 mmol/L (22-29); CHLORIDE 100 mmol/L (98-107); CREATININE, SERUM 0.63 mg/dL (0.57-1.11); EST GLOMERULAR FILTRATION RATE > 60 ML/MIN (60-); GLUCOSE 97 mg/dL (74-118); MAGNESIUM 1.6 MG/DL (1.3-2.1); PHOSPHORUS 3.6 MG/DL (2.3-4.7); POTASSIUM 3.6 mmol/L (3.5-5.1); SODIUM 136 mmol/L (136-145)
--- NOTE | 2018-11-30 10:15 | NUR ---
PT DISCHARGED HOME TODAY PT LIVES AT [facility] [place] DIONNE CALLED AND SPOKE WITH AMBER AT [facility] [phone] NOTIFIED HER THAT PT IS DISCHARGED WILL CHECK WITH [facility]IN[facility] AT [facility] AND FIND OUT WHAT TIME THEY CAN PICK PT UP CONFIRMED THAT PT LIVES THERE IN [address] NO NEXT OF KIN LISTED ON FACE SHEET AND NO NEXT OF KIN LISTED AT [facility] TO NOTIFY OF RETURN HOME AMBER WILL CALL NURSE KHURRAM WITH TALENT SCOUT TIME FOR PT TO RETURN
[2018-11-30 12:00] VITALS: BP 155/73
--- NOTE | 2018-11-30 12:11 | NUR ---
PATIENT HAS A DISCHARGE ORDER. RECALL AND GIVEN TO DONN (MACHINE [employer]OTHING MAN) PER USMAN ( [employer]).
--- NOTE | 2018-11-30 12:12 | NUR ---
REPORT CALLED AND GIVEN TO
--- NOTE | 2018-11-30 13:55 | NUR ---
PATIENT REFUSED WRITTEN INFORMATIONS REGARDING HYPONATREMIA AND UTI STATING "I AM FINE". ANTIBIOTIC PRESCRIPTION TO BE CALLED TO THE FACILITY PHARMACY BY AT [phone].
--- NOTE | 2018-11-30 14:00 | NUR ---
PATIENT TRANSFERRED TO [facility]ILITY. REPORT CALLED AND GIVEN. ALL PERSONAL ITEMS TAKEN WITH PATIENT. LEFT UNIT PER WHEEL CHAIR TO FRONT LOBBY IN STABLE CONDITION.
== END 2018-11-30 13:42 | disposition home or self-care (01) ==
LOC: ER 14:24 → ERHOLD 17:14 → MED/SURG3 18:42
PROVIDERS: ADMIT Internal Medicine; ATTEND Internal Medicine
DX: N30.01 Acute cystitis with hematuria (principal); E87.1 Hypo-osmolality and hyponatremia; E86.0 Dehydration; I10 Essential (primary) hypertension; F22 Delusional disorders; R56.9 Unspecified convulsions; E83.52 Hypercalcemia; B96.20 Unspecified Escherichia coli [E. coli] as the cause of diseases classified elsewhere; D64.9 Anemia, unspecified; Z86.73 Personal history of transient ischemic attack (TIA), and cerebral infarction without residual deficits; Z88.0 Allergy status to penicillin; Z88.2 Allergy status to sulfonamides; Z83.3 Family history of diabetes mellitus; Z82.49 Family history of ischemic heart disease and other diseases of the circulatory system
CPT/HCPCS: 36415 ×3; 71045; 80048; 80053 ×2; 81001; 82550 ×2; 82553 ×2; 83735; 84100; 84484 ×2; 85025 ×3; 85610; 85730; 87086; 87186; 87493; 93005; 96360; 96361; 99284; G0378 ×4; J0696 ×4; J2550; J7030 ×4